=== PATIENT | female | born 1995 | race Caucasian/White ===

== ENCOUNTER 2016-10-23 09:54 | Inpatient (IN) | payer MEDICAID ==
[~2016-10-23] VITALS: Ht 165.1 cm; Wt 104.6 kg
[2016-10-23] VITALS (20 sets, daily range): BP systolic 112–144; BP diastolic 57–85
--- NOTE | 2016-10-23 13:51 | Diagnostic Imaging Report ---
OB ultrasound. INDICATION: Evaluate amniotic fluid index. There is question of fluid leakage. FINDINGS: heart rate is 175 beat per minute. The SHAW is 11.9 cm, within normal limits. Placenta is anterior. No placenta previa. The fetus is in cephalic position. IMPRESSION: SHAW is 11.9 cm, normal. Dictated by: Dictated on workstation # [id number]
[2016-10-23] MEDS ORDERED: NS IV 1000 ML 1,000 ML ONE (14:04)
[2016-10-23] MEDS ORDERED: PREN-53 PO (15:59)
[2016-10-23] MEDS ORDERED: D5 LR IV SOLUTION 1,000 ML IV SCH (16:38)
[2016-10-23] MEDS ORDERED: MINERAL OIL CONCENTRATE 99.9% 15 ML UDC TOP PRN (16:45)
[2016-10-23] MEDS ORDERED: D5 LR IV SOLUTION 1,000 ML IV ONE (16:52)
[2016-10-23 17:14] LABS: BASOPHILS % (AUTO) 0 % (0-10); EOSINOPHILS # (AUTO) 0.1 10^3/uL (0.0-0.3); EOSINOPHILS % (AUTO) 1 % (0-10); LYMPHOCYTES # (AUTO) 2.2 X 10^3 (1.0-4.0); LYMPHOCYTES % (AUTO) 16 % (12-44); MEAN CORPUSCULAR HEMOGLOBIN 24 PG (25-34); MEAN CORPUSCULAR HGB CONC 33 G/DL (32-36); MEAN CORPUSCULAR VOLUME 74 FL (80-99); MEAN PLATELET VOLUME 10.7 FL (7.4-10.4); MONOCYTES % (AUTO) 8 % (0-12); NEUTROPHILS # (AUTO) 10.3 X 10^3 (1.8-7.8); NEUTROPHILS % (AUTO) 76 % (42-75); PLATELET COUNT 342 10^3/uL (130-400); RED CELL DISTRIBUTION WIDTH 14.7 % (10.0-14.5); WHITE BLOOD COUNT 13.6 10^3/uL (4.3-11.0)
[2016-10-23] MEDS ORDERED: OXYTOCIN/NORMAL SALINE 500 ML IV ONE (18:19)
[2016-10-23] MEDS ORDERED: OXYTOCIN/NORMAL SALINE 500 ML IV SCH ×2 (18:24→23:34)
--- NOTE | 2016-10-23 21:26 | History & Physical-OB ---
OB - Chief Complaint & HPI Date Date of Admission: Date of Admission: Oct 23, 2016 at 17:16 Chief Complaint/History OB-Reason for Admission/Chief: Rupture of Membranes (at 38 weeks gestation) Hx : 3 Hx Para: 2 Expected Date of Delivery: Nov 06, 2016 Gestational Age in Weeks: 38 Gestational Age in Days: 0 History of Labs GBS negative Other Received care in [facility] Allergies and Home Medications Allergies Coded Allergies: Sulfa (Sulfonamide Antibiotics) (Unverified Allergy, Mild, HIVES, 10/23/16) sulfamethoxazole (Verified Allergy, Unknown, HIVES, 10/23/16) trimethoprim (Verified Allergy, Unknown, HIVES, 10/23/16) Home Medications [id number]/Iron Fumarate/FA/Dss 1 Each Tablet 1 EACH PO DAILY (Reported) OB - History Hx of Present Care: Yes Ultrasounds: Normal mid trimester US Obstetrical Complications: None Medical Complications: None Obstetrical History Hx : 3 Hx Para: 2 Patient Past Medical History No chronic medical problems per patient Social History/Family History Recent Infectious Disease Expo: No Alcohol Use: Denies Use Recreational Drug Use: No Immunizations Hepatitis A: Yes Hepatitis B: Yes Date of Influenza Vaccine: Sep 22, 2016 OB - Admission Exam Physical Exam Vitals: Vital Signs 10/23/16 10/23/16 18:15 19:00 Temp 98.4 Pulse 91 Resp 18 B/P 122/76 HEENT: Moist Membranes Heart: Rhythm Normal Lungs: Clear Abdomen: Gravid Cervical Dilatation: 3cm Effacement: 50% Station: -3 Membranes: Ruptured Amniotic Fluid: Clear Heart Rate: 150's Accelerations: Accelerations Present Decelerations: No Decelerations Short Term Variability: Present Housing Liaison Variability: Average (6-25) Contractions on Admission: 6-10 Minutes Apart Intensity: Mild Labs Laboratory Tests Test 10/23/16 10:00 10/23/16 14:25 Range/Units Ur Tricyclic Antidepressants Screen NEGATIVE NEGATIVE Urine Amphetamines Screen NEGATIVE NEGATIVE Urine Barbiturates Screen NEGATIVE NEGATIVE Urine Benzodiazepines Screen NEGATIVE NEGATIVE Urine Cannabinoids Screen NEGATIVE NEGATIVE Urine Cocaine Screen NEGATIVE NEGATIVE Urine Methadone Screen NEGATIVE NEGATIVE Urine Methamphetamines Screen NEGATIVE NEGATIVE Urine Opiates Screen NEGATIVE NEGATIVE Urine Oxycodone Screen NEGATIVE NEGATIVE Urine Phencyclidine Screen NEGATIVE NEGATIVE Urine Propoxyphene Screen NEGATIVE NEGATIVE Basophils # (Auto) 0.0 0.0-0.1 10^3/uL Basophils (%) (Auto) 0 0-10 % Eosinophils # (Auto) 0.1 0.0-0.3 10^3/uL Eosinophils (%) (Auto) 1 0-10 % Hematocrit 33 L 35-52 % Hemoglobin 11.0 L 11.5-16.0 G/DL Lymphocytes # (Auto) 2.2 1.0-4.0 X 10^3 Lymphocytes (%) (Auto) 16 12-44 % Mean Corpuscular Hemoglobin 24 L 25-34 PG Mean Corpuscular Hemoglobin Concent 33 32-36 G/DL Mean Corpuscular Volume 74 L 80-99 FL Mean Platelet Volume 10.7 H 7.4-10.4 FL Monocytes # (Auto) 1.0 0.0-1.0 X 10^3 Monocytes (%) (Auto) 8 0-12 % Neutrophils # (Auto) 10.3 H 1.8-7.8 X 10^3 Neutrophils (%) (Auto) 76 H 42-75 % Platelet Count 342 130-400 10^3/uL Red Blood Count 4.50 4.35-5.85 10^6/uL Red Cell Distribution Width 14.7 H 10.0-14.5 % White Blood Count 13.6 H 4.3-11.0 10^3/uL OB - Assessment/Plan/Diagnosis Assessment Assessment: active labor, rupture of membranes (at 38 weeks gestation) Plan Plan: Expectant Management, Other (pitocin per protochol) Other Plan Patient desires only IV pain meds and no epidural at this point DERIC LEMA MD Oct 23, 2016 21:26
[2016-10-23] MEDS ORDERED: BUTORPHANOL INJ 2 MG/ML (STADOL) VIAL IV PRN (21:30)
[2016-10-23] MEDS ORDERED: CATHETER FLUSH 10 ML SYR IV SCH (22:00)
[2016-10-23] MEDS ORDERED: MEPIVACAINE (CARBOCAINE) 2% 50 ML VIAL ONE (22:41)
--- NOTE | 2016-10-23 23:34 | OB Labor & Delivery Record ---
L&D History Date of Service Date of Service: Oct 23, 2016 History Expected Date of Delivery: Nov 06, 2016 Gestational Age in Weeks: 38 Hx : 3 Hx Para: 2 Complications Events: Routine care Operative Indications (Cesarea: N/A-Vaginal Delivery Intrapartal Events: None L&D Stage1 Stage One Onset of Labor - Date: Oct 23, 2016 Onset of Labor - Time: 01:00 Monitors and Tracing Monitor Mode: External Heart Rate: 150 Monitor Accelerations: Uniform Station: -2 Short Term Variability: Present Presentation: Vertex Vital Signs VS - Last 72 Hours, by Label 10/23/16 10/23/16 10/23/16 10/23/16 10:20 11:00 12:00 13:00 Temp 98.2 Pulse 107 Resp 18 18 18 18 B/P 117/85 10/23/16 10/23/16 10/23/16 10/23/16 13:50 15:00 16:00 17:00 Resp 18 18 18 18 B/P 10/23/16 10/23/16 10/23/16 10/23/16 18:00 18:15 18:30 18:45 Temp 98.4 Pulse 91 Resp 18 18 18 B/P 122/76 10/23/16 19:00 Resp 18 B/P Signs of Distress by FHT Signs of Distress no Rupture of Membranes Spontaneous Ruture of Membrane: Yes Amniotic Membrane Fluid Desc.: Clear Amniotic Fluid Membrane Tests: Nitrazine Positive L&D Stage2 Stage Two Stage II Date: Oct 23, 2016 Stage II Time: 23:13 Monitors and Tracing Monitor Mode: Internal Heart Rate: 150 Monitor Accelerations: Uniform Monitor Decelerations: None Director Cloud Transformation Variability: Average (6-10) Short Term Variability: Present Position: Left Occiput Anterior Presentation: Vertex Signs of Distress by FHT Signs of Distress no Cord Descript/Complications Cord Vessel Description: 3 Vessels Delivery Type Delivery Method: Spontaneous Vaginal Anterior Shoulder: Left Episiotomy/Perineal Laceration Laceraction(s)/Extensions: No Condition of Delivery 1 minute Comment: 8 5 minute Comment: 9 Condition of Condition of : Living Exam: No Observed Abnormalities Resuscitation Resuscitation: N/A - Spontaneous Resp L&D Stage3 Stage Three Stage III Date: Oct 23, 2016 Stage III Time: 23:16 Pictocin Pitocin ml/hr: 125 Placenta Delivery Placenta Delivery: Spontaneous Delivery Summary Summary Vaginal blood loss >500ml: No 150cc Condition of Delivery Examined: Cervix Examined Post Hemorrhage: No DERIC LEMA MD Oct 23, 2016 23:34
[2016-10-23] MEDS ORDERED: WITCH HAZEL(TUCKS) 40 EA JAR TOP PRN (23:45)
[2016-10-23] MEDS ORDERED: MEASLES,MUMPS,RUBELLA 1 EA INJ SQ ONE (23:45)
[2016-10-23] MEDS ORDERED: TETANUS,DIPTH,PERTUSS P/F (BOOSTRIX) 0.5 ML VIAL IM ONE (23:45)
[2016-10-23] MEDS ORDERED: BENZOCAINE/MENTHOL (DERMOPLAST) 56 ML CAN TP PRN (23:45)
[2016-10-23] MEDS ORDERED: HYDROcodone/APAP 5 MG/325 MG (LORTAB) TAB PO PRN (23:45)
[2016-10-24] VITALS (12 sets, daily range): BP systolic 11–134; BP diastolic 61–75
[2016-10-24] MEDS: IBUPROFEN 600 MG (MOTRIN) TAB PO SCH ×4 (05:25→23:42)
[2016-10-24] MEDS ORDERED: CATHETER FLUSH 10 ML SYR IV SCH (06:00)
[2016-10-24 08:14] LABS: BASOPHILS % (AUTO) 0 % (0-10); EOSINOPHILS # (AUTO) 0.1 10^3/uL (0.0-0.3); EOSINOPHILS % (AUTO) 1 % (0-10); LYMPHOCYTES % (AUTO) 13 % (12-44); MEAN CORPUSCULAR HEMOGLOBIN 24 PG (25-34); MEAN CORPUSCULAR HGB CONC 33 G/DL (32-36); MEAN CORPUSCULAR VOLUME 74 FL (80-99); MEAN PLATELET VOLUME 10.4 FL (7.4-10.4); MONOCYTES # (AUTO) 1.2 X 10^3 (0.0-1.0); MONOCYTES % (AUTO) 8 % (0-12); NEUTROPHILS # (AUTO) 12.1 X 10^3 (1.8-7.8); NEUTROPHILS % (AUTO) 79 % (42-75); PLATELET COUNT 309 10^3/uL (130-400); RED BLOOD COUNT 4.31 10^6/uL (4.35-5.85); RED CELL DISTRIBUTION WIDTH 14.6 % (10.0-14.5); WHITE BLOOD COUNT 15.4 10^3/uL (4.3-11.0)
--- NOTE | 2016-10-24 09:24 | Progress Note (SOAP) ---
Subjective Subjective/Events-last exam No complaints. Cramping a little but ibuprofen helped. Objective Exam Last Set of Vital Signs Vital Signs Date Time Temp Pulse Resp B/P Pulse Ox O2 Delivery O2 Flow Rate FiO2 10/24/16 04:30 98.0 86 18 114/63 98 Room Air Capillary Refill : I&O Bad tableGeneral: No Acute Distress Lungs: Clear to Auscultation Heart: Regular Rate Abdomen: Soft (with uterus firm) Results/Procedures Lab Laboratory Tests 10/23/16 10:00: Ur Tricyclic Antidepressants Screen NEGATIVE, Urine Amphetamines Screen NEGATIVE , Urine Barbiturates Screen NEGATIVE, Urine Benzodiazepines Screen NEGATIVE, Urine Cannabinoids Screen NEGATIVE, Urine Cocaine Screen NEGATIVE, Urine Methadone Screen NEGATIVE, Urine Methamphetamines Screen NEGATIVE, Urine Opiates Screen NEGATIVE, Urine Oxycodone Screen NEGATIVE, Urine Phencyclidine Screen NEGATIVE, Urine Propoxyphene Screen NEGATIVE 10/23/16 14:25: Basophils # (Auto) 0.0, Basophils (%) (Auto) 0, Eosinophils # (Auto) 0.1, Eosinophils (%) (Auto) 1, Hematocrit 33L, Hemoglobin 11.0L, Lymphocytes # (Auto ) 2.2, Lymphocytes (%) (Auto) 16, Mean Corpuscular Hemoglobin 24L, Mean Corpuscular Hemoglobin Concent 33, Mean Corpuscular Volume 74L, Mean Platelet Volume 10.7H, Monocytes # (Auto) 1.0, Monocytes (%) (Auto) 8, Neutrophils # ( Auto) 10.3H, Neutrophils (%) (Auto) 76H, Platelet Count 342, Red Blood Count 4.50, Red Cell Distribution Width 14.7H, White Blood Count 13.6H 10/24/16 07:05: Basophils # (Auto) 0.0, Basophils (%) (Auto) 0, Eosinophils # (Auto) 0.1, Eosinophils (%) (Auto) 1, Hematocrit 32L, Hemoglobin 10.4L, Lymphocytes # (Auto ) 2.0, Lymphocytes (%) (Auto) 13, Mean Corpuscular Hemoglobin 24L, Mean Corpuscular Hemoglobin Concent 33, Mean Corpuscular Volume 74L, Mean Platelet Volume 10.4, Monocytes # (Auto) 1.2H, Monocytes (%) (Auto) 8, Neutrophils # ( Auto) 12.1H, Neutrophils (%) (Auto) 79H, Platelet Count 309, Red Blood Count 4.31L, Red Cell Distribution Width 14.6H, White Blood Count 15.4H Assessment/Plan Assessment/Plan Plan 1. S/P day 1 -continue routine PP care orders -labs scheduled for am of 10/25 Diagnosis/Problems: Clinical Quality Measures DVT/VTE Risk/Contraindication: Risk Factor Score Per Nursin RFS Level Per Nursing on Admit: 2=Moderate DERIC LEMA MD Oct 24, 2016 09:24
[2016-10-24] MEDS ORDERED: ONDANSETRON 8 MG (ZOFRAN) ORAL DISSOLVE TAB ONE (23:11)
[2016-10-24] MEDS ORDERED: ONDANSETRON 4 MG (ZOFRAN) ORAL DISSOLVE TAB PO ONE (23:15)
[2016-10-24] MEDS ORDERED: ONDANSETRON 8 MG (ZOFRAN) ORAL DISSOLVE TAB PO ONE (23:30)
[2016-10-25 04:35] VITALS: BP 107/69
[2016-10-25] MEDS: IBUPROFEN 600 MG (MOTRIN) TAB PO SCH ×2 (06:28→11:06)
[2016-10-25 08:20] VITALS: BP 104/57
--- NOTE | 2016-10-25 09:42 | Discharge Inst-Women's Service ---
Discharge Inst-Women's Serv Consults/Follow Up Additional Follow Up: Yes (With your wiping cloth cutter in 6 weeks) Activity Activity: Activity as Tolerated Driving Instructions: You May Drive Nothing Inside Vagina: No [place] (for 6 weeks) Diet Discharge Diet: No Restrictions Return to The Hospital For: As below Symptoms to Report to : Bleeding Excessive, Pain Increased, Fever Over 101 Degrees F, Vaginal Discharge DERIC Colvin MD Oct 25, 2016 09:41
--- NOTE | 2016-10-25 09:46 | Discharge Summary ---
Diagnosis/Chief Complaint Date of Admission Oct 23, 2016 at 17:16 Date of Discharge October 25, 2016 Admission Diagnosis Admission Diagnosis 1. Intrauterine at term 38 weeks 2. Mild iron deficiency anemia Discharge Diagnosis 1. Intrauterine at term 38 weeks 2. Mild iron deficiency anemia Chief Complaint/HPI Chief Complaint/HPI 21-year-old 3 now term 3 female who initially presented to women's services with uterine contractions and spontaneous rupture of membranes. Patient has received her care through physician in [place] but she was here visiting her in-laws. She has a due date of November 06, 2016. By her recollection and records received from Hospital in [place] she was without complications. She had received OB ultrasound upon arrival here which revealed an SHAW of 14. She continued to leak fluid and this was positive by nitrazine. Discharge Summary-OBS Procedures 1. Spontaneous vaginal delivery Discharge Physical Examination Allergies: Coded Allergies: Sulfa (Sulfonamide Antibiotics) (Unverified Allergy, Mild, HIVES, 10/23/16) sulfamethoxazole (Verified Allergy, Unknown, HIVES, 10/23/16) trimethoprim (Verified Allergy, Unknown, HIVES, 10/23/16) Vitals & I&Os Vital Sign - Last 12Hours Date Time Temp Pulse Resp B/P Pulse Ox O2 Delivery O2 Flow Rate FiO2 10/25/16 08:20 97.4 71 18 104/57 98 Room Air General Appearance: No Acute Distress HEENT: Mucous Memb Moist/[place] Respiratory: Clear to Auscultation Cardiovascular: Regular Rate Abdominal: Soft (with uterus firm) Hospital Course Patient presented to women's services on October 23, 2016 with spontaneous rupture of membranes and 38 weeks gestation. She initially was underwent expectant management but ultimately Pitocin was started. She eventually went on to completion and delivered a term viable female during the evening of October 23, 2016. Delivery was spontaneous vaginal and there was no episiotomy or perineal tears. received Apgars of 9 at 1 minute and 9 at 5 minutes. Following delivery patient underwent routine care orders. She was noted to have no complications during the remainder of hospital stay. She tolerated regular diet. She was ambulatory and had no shortness of breath or leg pain. Her hemoglobin on October 24 after delivery was 10.4. She was felt ready for dismissal in the morning of October 25, 2016 with all questions answered. She will follow up with her general forecaster in [facility] in 6 weeks. Discharge Instructions to patient/family Please see electonic discharge instructions given to patient. Discharge Medications Reviewed and agree with Discharge Medication list on patient's Discharge Instruction sheet Clinical Quality Measures DVT/VTE Risk/Contraindication: Risk Factor Score Per Nursin RFS Level Per Nursing on Admit: 2=Moderate DERIC LEMA MD Oct 25, 2016 09:46
== END 2016-10-25 12:30 | disposition home or self-care (01) | DRG 775 ==
LOC: WSo 09:54 → LDRP 09:54 → WSo 16:28 → LDRP 17:16
PROVIDERS: ADMIT Family Medicine; ATTEND Family Medicine
PROC: 10E0XZZ Delivery of Products of Conception, External Approach (ICD-10-PCS; principal; 2016-10-23)
DX: O42.02 Full-term premature rupture of membranes, onset of labor within 24 hours of rupture (principal); O99.013 Anemia complicating pregnancy, third trimester; D50.9 Iron deficiency anemia, unspecified; Z3A.38 38 weeks gestation of pregnancy; Z37.0 Single live birth
CPT/HCPCS: 36415; 76815; 80306; 85025; 86850; 86900; 86901; 99212

== ENCOUNTER → 2017-08-05 | Outpatient (CLI) | payer MEDICAID ==
[~2017-08-05] MED LIST: PREN-53 PO
--- NOTE | 2017-08-05 19:55 | Diagnostic Imaging Report ---
INDICATION: survey. TECHNIQUE: Multiple real-time grayscale images were obtained over the gravid uterus. COMPARISON: None during this . FINDINGS: heart rate is 158 beats per minute. The placenta is fundal. No placenta previa. The cervix is closed and is 4.1 cm in length. The spine, ventricles, bladder, kidneys, stomach, four-chamber view, intracranial structures, spine, cord insertion, and three-vessel cord are demonstrated. No definite abnormality in the maternal adnexa is seen. Biometrical measurements are as follows: Biparietal 4.93 cm, age 21 weeks 0 days. Head circumference 18.02 cm, age 20 weeks 4 days. Abdominal circumference 16.17 cm, age 21 weeks 2 days. Femur length 3.44 cm, age 20 weeks 6 days. Sonographic estimate age: 21 weeks 0 days. Sonographic estimated date of delivery: 12/16/2017. Estimated Weight: 392 gm (+/- 57 gm). LMP percentile: 69%. heart rate: 158 beats per minute. number: 1 of 1. IMPRESSION: Completed survey. Dictated by: Dictated on workstation # [id number]
== END ==
LOC: RAD 13:43
PROVIDERS: ATTEND Obstetrics & Gynecology
DX: Z36.87 Encounter for antenatal screening for uncertain dates (principal); Z3A.21 21 weeks gestation of pregnancy
CPT/HCPCS: 76805

== ENCOUNTER 2017-12-12 08:05 | Inpatient (IN) | payer MEDICAID ==
[~2017-12-12] VITALS: Ht 170.2 cm; Wt 105.2 kg
[2017-12-12] VITALS (35 sets, daily range): BP systolic 108–135; BP diastolic 56–79
[2017-12-12] MEDS ORDERED: D5 LR IV SOLUTION 1,000 ML IV SCH (09:03)
--- NOTE | 2017-12-12 09:09 | History & Physical-OB ---
OB - Chief Complaint & HPI Date/Time Date of Admission: Date of Admission: 12/12/17 Time Seen by Provider: 08:30 Chief Complaint/History OB-Reason for Admission/Chief: Rupture of Membranes (rupture of membranes, clear fluid at 0600) Hx : 4 Hx Para: 3 Expected Date of Delivery: Dec 18, 2017 Gestational Age in Weeks: 39 Gestational Age in Days: 1 Other reason for admission: This is a at 39 1/7 weeks. She had established care with Dr. Song but was only seen twice and hasn't been seen since 27 weeks[facility]. Admission Nurse Assessment Rev: Yes (O+, -) History of Labs O+/-, VDRL NR, HIV, Hep -, Rub I GBS unknown Other GBS unknown with no history of previous with poor outcome associated with GBS. Allergies and Home Medications Allergies Coded Allergies: Sulfa (Sulfonamide Antibiotics) (Unverified Allergy, Mild, HIVES, 10/23/16) sulfamethoxazole (Verified Allergy, Unknown, HIVES, 10/23/16) trimethoprim (Verified Allergy, Unknown, HIVES, 10/23/16) Home Medications Ibuprofen 600 Mg Tablet, 600 MG PO Q6HR PRN for PAIN-MILD Prescribed by: KORY PENNINGTON on 12/14/17 1006 [id number]/Iron Fumarate/FA/Dss 1 Each Tablet, 1 EACH PO DAILY, (Reported) Patient Home Medication List Home Medication List Reviewed: Yes OB - History Hx of Present Care: Yes (very limited (2 visits)) Ultrasounds: Normal mid trimester US Obstetrical Complications: None Medical Complications: None Information Induced Hypertension: No Maternal Gestational Diabetes: No Hemorrhage: No Obstetrical History Hx : 4 Hx Para: 3 Hx # Term Pregnancies: 3 Delivery History Hx Dystocia: No Hx Forceps Assisted Delivery: No Hx Vacuum Extraction Assisted: No Hx Placenta Abnormality: No Hx Distress: No Hx Large For Gestational Age I: No Hx Small for Gestational Age I: No Hx Section: No Hx Vaginal Delivery Post C-Sec: No Hx Blood Disorders: No Adverse Rxn to Tranfusion: No Patient Past Medical History No chronic medical problems per patient Social History/Family History HIV/AIDS: No Recent Infectious Disease Expo: No Sexually Transmitted Disease: No Alcohol Use: Denies Use Recreational Drug Use: No Smoking Cessation: Former smoker Immunizations Hepatitis A: Yes Hepatitis B: Yes Tetanus Booster (TDap): Unknown Date of Influenza Vaccine: Sep 22, 2016 Rubella: immune RPR/VDRL: Negative GBS Status: Unknown HBsAG: Negative OB - Admission Exam Physical Exam Vitals: see RN chart Heart: Rhythm Normal Lungs: Clear Abdomen: Gravid Reflexes: Normal Cervical Dilatation: other (There is scarring or irregularity noted on the periphery of the cervix. Firm. No previous history of abnormal pap smear, no history of cervical biopsy or surgery. Pap 07/20 negative RN concerned about presentation but vertex by US. ) Effacement: 50% Station: -3 Membranes: Ruptured Amniotic Fluid: Clear Heart Rate: 140's Accelerations: Accelerations Present Decelerations: No Decelerations Short Term Variability: Present Fpc Variability: Average (6-25) Contractions on Admission: >10 Minutes Apart OB - Assessment/Plan/Diagnosis Assessment Assessment: rupture of membranes Admission Dx Limited care ROM Admit for observation. Augmentation as necessary. Anticipate . USD pending Admission Status: Inpatient Order (span 2 midnights) Reason for Inpatient Admission: LABOR, SPONTANEOUS RUPTURE OF MEMBRANES KORY PENNINGTON DO Dec 12, 2017 9:09 am
[2017-12-12] MEDS ORDERED: MINERAL OIL CONCENTRATE 99.9% 15 ML UDC TOP PRN (09:15)
[2017-12-12] MEDS ORDERED: LIDOCAINE/EPI 1%-1:100,000 (XYLOCAINE) 20ML INJ ONE (09:15)
[2017-12-12] MEDS ORDERED: OXYTOCIN/NORMAL SALINE 500 ML IV SCH (09:39)
[2017-12-12 09:49] LABS: BILIRUBIN,URINE NEGATIVE (NEGATIVE); CLARITY,URINE VERY CLOUDY; COLOR,URINE YELLOW; GLUCOSE, URINE (UA) NEGATIVE (NEGATIVE); KETONES,URINE NEGATIVE (NEGATIVE); LEUKOCYTE ESTERASE ,URINE NEGATIVE (NEGATIVE); NITRITE,URINE NEGATIVE (NEGATIVE); PH,URINE 7 (5-9); PROTEIN,URINE NEGATIVE (NEGATIVE); UROBILINOGEN,URINE NORMAL (NORMAL)
[2017-12-12 09:59] LABS: BACTERIA,URINE NEGATIVE /HPF; RBC,URINE 25-50 /HPF; SQUAMOUS EPITHELIAL CELL,UR TNTC /HPF
[2017-12-12 10:00] LABS: AMORPHOUS SEDIMENT,UR LARGE AMOR URATES /LPF
[2017-12-12 10:01] LABS: AMPHETAMINE SCREEN, URINE NEGATIVE (NEGATIVE); BARBITURATE SCREEN URINE NEGATIVE (NEGATIVE); BENZODIAZEPINES SCREEN URINE NEGATIVE (NEGATIVE); CANNABINOID SCREEN, URINE NEGATIVE (NEGATIVE); COCAINE SCREEN URINE NEGATIVE (NEGATIVE); METHADONE STAT NEGATIVE (NEGATIVE); METHAMPHETAMINE SCREEN URINE S NEGATIVE (NEGATIVE); OPIATE SCREEN URINE NEGATIVE (NEGATIVE); OXYCODONE STAT NEGATIVE (NEGATIVE); PROPOXYPHENE STAT NEGATIVE (NEGATIVE); TRICYCLIC ANTIDEPRESSANTS SCRE NEGATIVE (NEGATIVE)
[2017-12-12 10:27] LABS: BASOPHILS % (AUTO) 0 % (0-10); EOSINOPHILS # (AUTO) 0.2 10^3/uL (0.0-0.3); EOSINOPHILS % (AUTO) 2 % (0-10); HEMATOCRIT 32 % (35-52); HEMOGLOBIN 10.5 G/DL (11.5-16.0); LYMPHOCYTES # (AUTO) 1.8 X 10^3 (1.0-4.0); LYMPHOCYTES % (AUTO) 18 % (12-44); MEAN CORPUSCULAR HEMOGLOBIN 23 PG (25-34); MEAN CORPUSCULAR HGB CONC 33 G/DL (32-36); MEAN CORPUSCULAR VOLUME 71 FL (80-99); MEAN PLATELET VOLUME 10.3 FL (7.4-10.4); MONOCYTES # (AUTO) 0.9 X 10^3 (0.0-1.0); MONOCYTES % (AUTO) 8 % (0-12); NEUTROPHILS # (AUTO) 7.4 X 10^3 (1.8-7.8); NEUTROPHILS % (AUTO) 72 % (42-75); PLATELET COUNT 261 10^3/uL (130-400); RED BLOOD COUNT 4.55 10^6/uL (4.35-5.85); RED CELL DISTRIBUTION WIDTH 15.5 % (10.0-14.5); WHITE BLOOD COUNT 10.3 10^3/uL (4.3-11.0)
[2017-12-12] MEDS ORDERED: ONDANSETRON 4 MG/2 ML (SDV) Z0FRAN IVP PRN (11:45)
[2017-12-12] MEDS ORDERED: INFLUENZA TRIvalent 2017-2018 0.5 ML/45 MCG SYR IM ONE (12:00)
[2017-12-12] MEDS: BUTORPHANOL INJ 2 MG/ML (STADOL) VIAL IV PRN ×2 (12:54→15:08)
[2017-12-12] MEDS ORDERED: LIDOCAINE/EPI 2% 1:200,00 (XYLOCAINE) 10 ML VIAL ONE (15:12)
[2017-12-12] MEDS: OXYTOCIN/NORMAL SALINE 500 ML IV SCH ×2 (17:19→17:44)
[2017-12-12] MEDS ORDERED: BENZOCAINE/MENTHOL (DERMOPLAST) 56 ML CAN TP PRN (17:30)
[2017-12-12] MEDS ORDERED: MEASLES,MUMPS,RUBELLA 1 EA INJ SQ ONE (17:30)
[2017-12-12] MEDS ORDERED: ACETAMINOPHEN 500 MG TAB (TYLENOL) PO PRN (17:30)
[2017-12-12] MEDS ORDERED: WITCH HAZEL(TUCKS) 40 EA JAR TOP PRN (17:30)
[2017-12-12] MEDS ORDERED: TETANUS,DIPTH,PERTUSS P/F (BOOSTRIX) 0.5 ML VIAL IM ONE (17:30)
--- NOTE | 2017-12-12 17:40 | OB Labor & Delivery Record ---
Vag Delivery Note Vag Delivery Note Date of Delivery: 12/12/17 Preoperative Diagnosis: Clare Mercado is a 22 /Para 4/3 / ,Gestational Age 39 1/7 weeks with SROM Postoperative Diagnosis: Same Surgeon: KORY PENNINGTON Anesthesia: epidural Delivery Type: vaginal Findings: Viable female infant, apgars 8/9, weight pending Lacerations: Intact placenta with 3 vessel cord. No nuchal cord, body cord or shoulder dystocia Estimated Blood Loss: 150 ml Complications: None Condition: Stable Description of Procedure: The patient is a 22 /Para 4/3 / ,Gestational Age 39 1/7 weeks with SROM. She was admitted and informed consent was obtained. Her labor course was remarkable for augmentation after 4 hours with no cervical change and rare contractions. Epidural was placed. I was notified at 1704 of 9 cm dilation and "feeling pushy". I immediately came to the hospital I arrived at 1713. I was notified while in the staircase that she was and arrived on the floor as the head was delivered in the bed. The RN stated the patient did not push. I delivered the rest of the baby. Double cut the cord and suctioned the oropharynx. I then accomplished delivery of an intact placenta with 3-vessel cord delivered via Smith and there was found to be minimal bleeding.~ Vigorous fundal massage was performed and the fundus was found to be firm. IV oxytocin was given. Examination of the vagina and perineum revealed a no laceration. Following the delivery, sponge, instrument and needle counts were correct. Mom and baby were both in stable condition in the labor suite. Vitals - Labs Vital Signs - I&O Vital Signs Date Time Temp Pulse Resp B/P (MAP) Pulse Ox O2 Delivery O2 Flow Rate FiO2 12/12/17 14:00 76 20 115/60 (78) Room Air 12/12/17 13:45 83 20 116/66 (83) Room Air 12/12/17 13:31 72 20 119/68 (85) Room Air 12/12/17 13:15 75 20 114/66 (82) Room Air 12/12/17 13:02 81 20 118/69 (85) Room Air 12/12/17 12:46 79 20 112/72 (85) Room Air 12/12/17 12:32 98.7 82 20 118/63 (81) Room Air 12/12/17 12:15 92 20 108/71 (83) Room Air 12/12/17 12:00 86 20 113/74 (87) Room Air 12/12/17 11:45 82 20 117/75 (89) Room Air 12/12/17 11:32 76 20 108/70 (83) Room Air 12/12/17 11:15 75 20 113/70 (84) Room Air 12/12/17 11:00 98.3 73 20 113/67 (82) Room Air 12/12/17 10:45 78 20 114/78 (90) Room Air 12/12/17 10:32 75 20 113/71 (85) Room Air 12/12/17 08:25 80 20 130/79 (96) Room Air Labs Laboratory Tests 12/12/17 08:30: Urine Color YELLOW, Urine Clarity VERY CLOUDYH, Urine pH 7, Urine Specific [place] 1.020, Urine Protein NEGATIVE, Urine Glucose (UA) NEGATIVE, Urine Ketones NEGATIVE, Urine Nitrite NEGATIVE, Urine Bilirubin NEGATIVE, Urine Urobilinogen NORMAL, Urine Leukocyte Esterase NEGATIVE, Urine RBC (Auto) 4+H, Urine RBC 25-50H, Urine WBC NONE, Urine Squamous Epithelial Cells TNTCH, Urine Crystals PRESENTH, Urine Amorphous Sediment LARGE JOSE L URATESH, Urine Bacteria NEGATIVE, Urine Casts NONE, Urine Mucus NEGATIVE, Urine Culture Indicated NO, Urine Opiates Screen NEGATIVE, Urine Oxycodone Screen NEGATIVE, Urine Methadone Screen NEGATIVE, Urine Propoxyphene Screen NEGATIVE, Urine Barbiturates Screen NEGATIVE, Ur Tricyclic Antidepressants Screen NEGATIVE, Urine Phencyclidine Screen NEGATIVE, Urine Amphetamines Screen NEGATIVE, Urine Methamphetamines Screen NEGATIVE, Urine Benzodiazepines Screen NEGATIVE, Urine Cocaine Screen NEGATIVE, Urine Cannabinoids Screen NEGATIVE 12/12/17 10:09: White Blood Count 10.3, Red Blood Count 4.55, Hemoglobin 10.5L, Hematocrit 32L, Mean Corpuscular Volume 71L, Mean Corpuscular Hemoglobin 23L, Mean Corpuscular Hemoglobin Concent 33, Red Cell Distribution Width 15.5H, Platelet Count 261, Mean Platelet Volume 10.3, Neutrophils (%) (Auto) 72, Lymphocytes (%) (Auto) 18 , Monocytes (%) (Auto) 8, Eosinophils (%) (Auto) 2, Basophils (%) (Auto) 0, Neutrophils # (Auto) 7.4, Lymphocytes # (Auto) 1.8, Monocytes # (Auto) 0.9, Eosinophils # (Auto) 0.2, Basophils # (Auto) 0.0 KORY PENNINGTON DO Dec 12, 2017 5:40 pm
[2017-12-12] MEDS: IBUPROFEN 600 MG (MOTRIN) TAB PO PRN (21:01)
[2017-12-12] MEDS ORDERED: CATHETER FLUSH 10 ML SYR IV SCH (22:00)
[2017-12-13 00:30] VITALS: BP 83/44
[2017-12-13 03:53] VITALS: BP 114/74
[2017-12-13 06:49] LABS: BASOPHILS % (AUTO) 0 % (0-10); EOSINOPHILS # (AUTO) 0.2 10^3/uL (0.0-0.3); EOSINOPHILS % (AUTO) 1 % (0-10); HEMATOCRIT 30 % (35-52); HEMOGLOBIN 9.3 G/DL (11.5-16.0); LYMPHOCYTES # (AUTO) 2.5 X 10^3 (1.0-4.0); LYMPHOCYTES % (AUTO) 20 % (12-44); MEAN CORPUSCULAR HEMOGLOBIN 23 PG (25-34); MEAN CORPUSCULAR HGB CONC 32 G/DL (32-36); MEAN CORPUSCULAR VOLUME 71 FL (80-99); MEAN PLATELET VOLUME 10.5 FL (7.4-10.4); MONOCYTES # (AUTO) 0.9 X 10^3 (0.0-1.0); MONOCYTES % (AUTO) 8 % (0-12); NEUTROPHILS # (AUTO) 8.7 X 10^3 (1.8-7.8); NEUTROPHILS % (AUTO) 71 % (42-75); PLATELET COUNT 272 10^3/uL (130-400); RED BLOOD COUNT 4.13 10^6/uL (4.35-5.85); RED CELL DISTRIBUTION WIDTH 15.3 % (10.0-14.5); WHITE BLOOD COUNT 12.2 10^3/uL (4.3-11.0)
[2017-12-13] MEDS ORDERED: TETANUS,DIPTH,PERTUSS P/F (BOOSTRIX) 0.5 ML VIAL IM ONE (08:25)
[2017-12-13] MEDS: IBUPROFEN 600 MG (MOTRIN) TAB PO PRN ×3 (08:41→21:49)
[2017-12-13 08:44] VITALS: BP 99/64
--- OUTSIDE RECORDS SUMMARY | 2017-12-13 08:56 | XMS REPORT ---
Author Author [facility]ICHOL[facility] Address [address] [place] [address] Care Team Providers Care High Heel Builder Name Role Phone MITCHELL NICHOLS Unavailable PROBLEMS Type Condition ICD9-CM Code [id number] Code Onset Dates Condition Status SNOMED Code Problem Anxiety F41.9 Active 05643028 Problem Major depressive disorder, recurrent episode, moderate F33.1 Active [id number] ALLERGIES No Information SOCIAL HISTORY Never Assessed PLAN OF CARE VITAL SIGNS MEDICATIONS Unknown Medications RESULTS No Results PROCEDURES No Known procedures IMMUNIZATIONS No Known Immunizations MEDICAL (GENERAL) HISTORY Type Description Date Medical History Depression Medical History Anxiety Surgical History tonsillectomy and adenoidectomy 1999 Hospitalization History childbirth only
--- OUTSIDE RECORDS SUMMARY | 2017-12-13 08:57 | XMS REPORT ---
Author Author JOSH MCGOVERN [facility] Address [address] [place] [address] Care Team Providers Care Pickle Solution Maker Name Role Phone JOSH MCGOVERN Unavailable PROBLEMS Type Condition ICD9-CM Code [id number] Code Onset Dates Condition Status SNOMED Code Problem Anxiety F41.9 Active 89090043 Problem Major depressive disorder, recurrent episode, moderate F33.1 Active [id number] ALLERGIES No Information SOCIAL HISTORY Never Assessed PLAN OF CARE VITAL SIGNS MEDICATIONS Unknown Medications RESULTS No Results PROCEDURES No Known procedures IMMUNIZATIONS No Known Immunizations MEDICAL (GENERAL) HISTORY Type Description Date Medical History Depression Medical History Anxiety Surgical History tonsillectomy and adenoidectomy 1999 Hospitalization History childbirth only
--- OUTSIDE RECORDS SUMMARY | 2017-12-13 08:57 | XMS REPORT ---
Author Author ANJELICA JOSUE Organization [facility] Address [address] [place] [address] Care Team Providers Care Credit And Collections Analyst Name Role Phone ANJELICA JOSUE Unavailable PROBLEMS Type Condition ICD9-CM Code [id number] Code Onset Dates Condition Status SNOMED Code Problem Anxiety F41.9 Active 12431794 Problem Major depressive disorder, recurrent episode, moderate F33.1 Active [id number] ALLERGIES Substance Reaction Event Type Date Status Sulfacetamide Sodium hives Drug Allergy Nov, Active SOCIAL HISTORY Never Assessed PLAN OF CARE VITAL SIGNS MEDICATIONS Unknown Medications RESULTS No Results PROCEDURES No Known procedures IMMUNIZATIONS No Known Immunizations MEDICAL (GENERAL) HISTORY Type Description Date Medical History Depression Medical History Anxiety Surgical History tonsillectomy and adenoidectomy 1999 Hospitalization History childbirth only
--- OUTSIDE RECORDS SUMMARY | 2017-12-13 08:57 | XMS REPORT ---
Author Author DARRYN BHAKTA [facility] Address Unknown Phone Unavailable Care Team Providers Care Cancer Researcher Name Role Phone DARRYN BHAKTA Unavailable Unavailable PROBLEMS Type Condition ICD9-CM Code [id number] Code Onset Dates Condition Status SNOMED Code Problem Anxiety F41.9 Active 33027569 Problem Major depressive disorder, recurrent episode, moderate F33.1 Active [id number] ALLERGIES No Information SOCIAL HISTORY Never Assessed PLAN OF CARE VITAL SIGNS MEDICATIONS Unknown Medications RESULTS No Results PROCEDURES No Known procedures IMMUNIZATIONS No Known Immunizations MEDICAL (GENERAL) HISTORY Type Description Date Medical History Depression Medical History Anxiety Surgical History tonsillectomy and adenoidectomy 1999 Hospitalization History childbirth only
--- OUTSIDE RECORDS SUMMARY | 2017-12-13 08:57 | XMS REPORT ---
Author Author MITCHELL NICHOLS [facility] Address [address] [place] [address] Care Team Providers Care Food Critic Name Role Phone MITCHELL NICHOLS Unavailable PROBLEMS Type Condition ICD9-CM Code [id number] Code Onset Dates Condition Status SNOMED Code Problem Anxiety F41.9 Active 63287036 Problem Major depressive disorder, recurrent episode, moderate F33.1 Active 062088151 ALLERGIES Substance Reaction Event Type Date Status Sulfacetamide Sodium hives Drug Allergy Dec, Active SOCIAL HISTORY Never Assessed PLAN OF CARE Activity Details Follow Up 3 Weeks Reason:anxiety/depression/WW exam VITAL SIGNS Height 67 in 2016-12-21 Weight 214.0 lbs 2016-12-21 Temperature 96.9 degrees Fahrenheit 2016-12-21 Heart Rate 86 bpm 2016-12-21 Respiratory Rate 18 2016-12-21 BMI 33.51 kg/m2 2016-12-21 Blood pressure systolic 118 mmHg 2016-12-21 Blood pressure diastolic 76 mmHg 2016-12-21 MEDICATIONS Medication Instructions Dosage Frequency Start Date End Date Duration Status Zoloft 50 mg Orally Once a day ( take 1/2 tablet x 3 days then 1 tablet daily ) 1 tablet Dec, Active RESULTS Name Result Date Reference Range THYROID ANALYZER 2016-12-21 TSH 0.828 0.450-4.500 CMP 2016-12-21 Glucose, Serum 110 65-99 BUN 12 6-20 Creatinine, Serum 0.97 0.57-1.00 eGFR If NonAfricn Am 83 >59 eGFR If Africn Am 95 >59 BUN/Creatinine Ratio 12 8-20 Sodium, Serum 142 134-144 Potassium, Serum 4.1 3.5-5.2 Chloride, Serum 101 96-106 Carbon Dioxide, Total 23 18-29 Calcium, Serum 9.7 8.7-10.2 Protein, Total, Serum 7.4 6.0-8.5 Albumin, Serum 4.5 3.5-5.5 Globulin, Total 2.9 1.5-4.5 A/G Ratio 1.6 1.2-2.2 Bilirubin, Total 0.3 0.0-1.2 Alkaline Phosphatase, S 98 39-117 AST (SGOT) 20 0-40 ALT (SGPT) 34 0-32 CBC 2016-12-21 WBC 8.1 3.4-10.8 RBC 5.12 3.77-5.28 Hemoglobin 12.2 11.1-15.9 Hematocrit 37.5 34.0-46.6 MCV 73 79-97 MCH 23.8 26.6-33.0 MCHC 32.5 31.5-35.7 RDW 20.6 12.3-15.4 Platelets 447 150-379 Neutrophils 61 Lymphs 29 Monocytes 6 Eos 3 Basos 0 Neutrophils (Absolute) 5.0 1.4-7.0 Lymphs (Absolute) 2.4 0.7-3.1 Monocytes(Absolute) 0.5 0.1-0.9 Eos (Absolute) 0.2 0.0-0.4 Baso (Absolute) 0.0 0.0-0.2 Immature Granulocytes 1 Immature Grans (Abs) 0.0 0.0-0.1 PROCEDURES Procedure Date Ordered Result Body Site ROUTINE VENIPUNCTURE 2016-12-21 N/A COMPLETE CBC W/AUTO DIFF WBC December 21, 2016 ASSAY THYROID STIM HORMONE December 21, 2016 COMPREHEN METABOLIC PANEL December 21, 2016 IMMUNIZATIONS No Known Immunizations MEDICAL (GENERAL) HISTORY Type Description Date Medical History Depression Medical History Anxiety Surgical History tonsillectomy and adenoidectomy 1999 Hospitalization History childbirth only
--- OUTSIDE RECORDS SUMMARY | 2017-12-13 08:57 | XMS REPORT ---
Author Author JOSH MCGOVERN Organization [facility] Address [address] [place] [address] Care Team Providers Care Fitness Trainer Name Role Phone JOSH MCGOVERN Unavailable PROBLEMS Type Condition ICD9-CM Code [id number] Code Onset Dates Condition Status SNOMED Code Problem Anxiety F41.9 Active 81198685 Problem Major depressive disorder, recurrent episode, moderate F33.1 Active [id number] ALLERGIES No Information SOCIAL HISTORY Never Assessed PLAN OF CARE Activity Details Follow Up prn Reason: VITAL SIGNS MEDICATIONS Unknown Medications RESULTS No Results PROCEDURES Procedure Date Ordered Result Body Site Psychotherapy, patient &/family, 30 minutes, established patient Nov 23, 2016 IMMUNIZATIONS No Known Immunizations MEDICAL (GENERAL) HISTORY Type Description Date Medical History Depression Medical History Anxiety Surgical History tonsillectomy and adenoidectomy 1999 Hospitalization History childbirth only
--- OUTSIDE RECORDS SUMMARY | 2017-12-13 08:57 | XMS REPORT ---
Author [facility] Address [address] [place] [address] Care Team Providers Care Proc Tech Name Role Phone MITCHELL NICHOLS Unavailable PROBLEMS Type Condition ICD9-CM Code [id number] Code Onset Dates Condition Status SNOMED Code Problem Anxiety F41.9 Active 67106361 Problem Major depressive disorder, recurrent episode, moderate F33.1 Active [id number] ALLERGIES No Information SOCIAL HISTORY Never Assessed PLAN OF CARE VITAL SIGNS MEDICATIONS Unknown Medications RESULTS No Results PROCEDURES No Known procedures IMMUNIZATIONS No Known Immunizations MEDICAL (GENERAL) HISTORY Type Description Date Medical History Depression Medical History Anxiety Surgical History tonsillectomy and adenoidectomy 1999 Hospitalization History childbirth only
--- OUTSIDE RECORDS SUMMARY | 2017-12-13 08:57 | XMS REPORT ---
Author Author JOSH MCGOVERN [facility] [address] Address [address] [place] [address] Care Team Providers Care Bumper Straightener Name Role Phone JOSH MCGOVERN Unavailable PROBLEMS Type Condition ICD9-CM Code [id number] Code Onset Dates Condition Status SNOMED Code Problem Anxiety F41.9 Active 41321589 Problem Major depressive disorder, recurrent episode, moderate F33.1 Active [id number] ALLERGIES No Information SOCIAL HISTORY Never Assessed PLAN OF CARE VITAL SIGNS MEDICATIONS Unknown Medications RESULTS No Results PROCEDURES No Known procedures IMMUNIZATIONS No Known Immunizations MEDICAL (GENERAL) HISTORY Type Description Date Medical History Depression Medical History Anxiety Surgical History tonsillectomy and adenoidectomy 1999 Hospitalization History childbirth only
--- NOTE | 2017-12-13 10:55 | Postpartum Progress Note ---
Note Note Day # 1 s/p Subjective: Patient is without complaints. Ambulating, voiding. Tolerating a regular diet without nausea or vomiting. Normal lochia. Pain is well controlled with oral pain medications. Objective: Laboratory Tests Test 12/13/17 06:19 Range/Units White Blood Count 12.2 H 4.3-11.0 10^3/uL Red Blood Count 4.13 L 4.35-5.85 10^6/uL Hemoglobin 9.3 L 11.5-16.0 G/DL Hematocrit 30 L 35-52 % Mean Corpuscular Volume 71 L 80-99 FL Mean Corpuscular Hemoglobin 23 L 25-34 PG Mean Corpuscular Hemoglobin Concent 32 32-36 G/DL Red Cell Distribution Width 15.3 H 10.0-14.5 % Platelet Count 272 130-400 10^3/uL Mean Platelet Volume 10.5 H 7.4-10.4 FL Neutrophils (%) (Auto) 71 42-75 % Lymphocytes (%) (Auto) 20 12-44 % Monocytes (%) (Auto) 8 0-12 % Eosinophils (%) (Auto) 1 0-10 % Basophils (%) (Auto) 0 0-10 % Neutrophils # (Auto) 8.7 H 1.8-7.8 X 10^3 Lymphocytes # (Auto) 2.5 1.0-4.0 X 10^3 Monocytes # (Auto) 0.9 0.0-1.0 X 10^3 Eosinophils # (Auto) 0.2 0.0-0.3 10^3/uL Basophils # (Auto) 0.0 0.0-0.1 10^3/uL Laboratory Tests Test 12/12/17 08:30 12/12/17 10:09 12/13/17 06:19 Range/Units Urine Color YELLOW Urine Clarity VERY CLOUDY H Urine pH 7 5-9 Urine Specific [place] 1.020 1.016-1.022 Urine Protein NEGATIVE NEGATIVE Urine Glucose (UA) NEGATIVE NEGATIVE Urine Ketones NEGATIVE NEGATIVE Urine Nitrite NEGATIVE NEGATIVE Urine Bilirubin NEGATIVE NEGATIVE Urine Urobilinogen NORMAL NORMAL MG/DL Urine Leukocyte Esterase NEGATIVE NEGATIVE Urine RBC (Auto) 4+ H NEGATIVE Urine RBC 25-50 H /HPF Urine WBC NONE /HPF Urine Squamous Epithelial Cells TNTC H /HPF Urine Crystals PRESENT H /LPF Urine Amorphous Sediment LARGE JOSE L URATES H /LPF Urine Bacteria NEGATIVE /HPF Urine Casts NONE /LPF Urine Mucus NEGATIVE /LPF Urine Culture Indicated NO Urine Opiates Screen NEGATIVE NEGATIVE Urine Oxycodone Screen NEGATIVE NEGATIVE Urine Methadone Screen NEGATIVE NEGATIVE Urine Propoxyphene Screen NEGATIVE NEGATIVE Urine Barbiturates Screen NEGATIVE NEGATIVE Ur Tricyclic Antidepressants Screen NEGATIVE NEGATIVE Urine Phencyclidine Screen NEGATIVE NEGATIVE Urine Amphetamines Screen NEGATIVE NEGATIVE Urine Methamphetamines Screen NEGATIVE NEGATIVE Urine Benzodiazepines Screen NEGATIVE NEGATIVE Urine Cocaine Screen NEGATIVE NEGATIVE Urine Cannabinoids Screen NEGATIVE NEGATIVE White Blood Count 10.3 12.2 H 4.3-11.0 10^3/uL Red Blood Count 4.55 4.13 L 4.35-5.85 10^6/uL Hemoglobin 10.5 L 9.3 L 11.5-16.0 G/DL Hematocrit 32 L 30 L 35-52 % Mean Corpuscular Volume 71 L 71 L 80-99 FL Mean Corpuscular Hemoglobin 23 L 23 L 25-34 PG Mean Corpuscular Hemoglobin Concent 33 32 32-36 G/DL Red Cell Distribution Width 15.5 H 15.3 H 10.0-14.5 % Platelet Count 261 272 130-400 10^3/uL Mean Platelet Volume 10.3 10.5 H 7.4-10.4 FL Neutrophils (%) (Auto) 72 71 42-75 % Lymphocytes (%) (Auto) 18 20 12-44 % Monocytes (%) (Auto) 8 8 0-12 % Eosinophils (%) (Auto) 2 1 0-10 % Basophils (%) (Auto) 0 0 0-10 % Neutrophils # (Auto) 7.4 8.7 H 1.8-7.8 X 10^3 Lymphocytes # (Auto) 1.8 2.5 1.0-4.0 X 10^3 Monocytes # (Auto) 0.9 0.9 0.0-1.0 X 10^3 Eosinophils # (Auto) 0.2 0.2 0.0-0.3 10^3/uL Basophils # (Auto) 0.0 0.0 0.0-0.1 10^3/uL Vital Sign - Last 12Hours 12/13/17 12/13/17 12/13/17 00:30 03:53 08:44 Temp 99.3 98.2 99.1 Pulse 69 81 75 Resp 18 16 18 B/P (MAP) 83/44 (57) 114/74 (87) 99/64 (76) Pulse Ox 98 99 97 O2 Delivery Room Air Room Air Room Air Intake and Output 12/13/17 00:00 Intake Total 1700 ml Balance 1700 ml Physical Exam: General - Alert and oriented, no apparent distress Abdomen - Soft, appropriately tender to palpation, non-distended, fundus firm at umbilicus Extremities - no edema, negative Jen's bilaterally Assessment: 1. post- day # 1, status post SPONTvaginal delivery. Recovering well, hemodynamically stable 2. Acute blood loss anemia 3. cervical lesion removed Plan: Routine care. Encourage breast feeding. Encourage ambulation. Ferrous sulfate supplementation. Plan for discharge Vitals - Labs Vital Signs - I&O Vital Signs Date Time Temp Pulse Resp B/P (MAP) Pulse Ox O2 Delivery O2 Flow Rate FiO2 12/13/17 08:44 99.1 75 18 99/64 (76) 97 Room Air 12/13/17 03:53 98.2 81 16 114/74 (87) 99 Room Air 12/13/17 00:30 99.3 69 18 83/44 (57) 98 Room Air 12/12/17 20:25 91 20 135/72 (93) 97 Room Air 12/12/17 18:29 77 20 112/61 (78) Room Air 12/12/17 18:14 98.4 74 20 112/58 (76) Room Air 12/12/17 17:59 81 20 116/57 (76) Room Air 12/12/17 17:44 81 20 109/59 (76) Room Air 12/12/17 17:29 86 20 115/56 (75) Room Air 12/12/17 17:15 96 20 127/61 (83) Room Air 12/12/17 17:00 85 20 117/63 (81) Room Air 12/12/17 16:45 85 20 123/66 (85) Room Air 12/12/17 16:30 88 20 125/75 (92) Room Air 12/12/17 16:15 98.3 85 20 118/66 (83) Room Air 12/12/17 16:00 82 20 120/71 (87) Room Air 12/12/17 15:45 83 20 121/71 (88) Room Air 12/12/17 15:31 72 20 119/65 (83) Room Air 12/12/17 15:15 78 20 114/61 (78) Room Air 12/12/17 15:00 85 20 118/73 (88) Room Air 12/12/17 14:45 85 20 115/60 (78) Room Air 12/12/17 14:30 98.3 82 20 128/68 (88) Room Air 12/12/17 14:15 82 20 126/65 (85) Room Air 12/12/17 14:00 76 20 115/60 (78) Room Air 12/12/17 13:45 83 20 116/66 (83) Room Air 12/12/17 13:31 72 20 119/68 (85) Room Air 12/12/17 13:15 75 20 114/66 (82) Room Air 12/12/17 13:02 81 20 118/69 (85) Room Air 12/12/17 12:46 79 20 112/72 (85) Room Air 12/12/17 12:32 98.7 82 20 118/63 (81) Room Air 12/12/17 12:15 92 20 108/71 (83) Room Air 12/12/17 12:00 86 20 113/74 (87) Room Air 12/12/17 11:45 82 20 117/75 (89) Room Air 12/12/17 11:32 76 20 108/70 (83) Room Air 12/12/17 11:15 75 20 113/70 (84) Room Air 12/12/17 11:00 98.3 73 20 113/67 (82) Room Air I & O 12/13/17 07:00 Intake Total 1700 ml Balance 1700 ml Labs Laboratory Tests 12/13/17 06:19: White Blood Count 12.2H, Red Blood Count 4.13L, Hemoglobin 9.3L, Hematocrit 30L , Mean Corpuscular Volume 71L, Mean Corpuscular Hemoglobin 23L, Mean Corpuscular Hemoglobin Concent 32, Red Cell Distribution Width 15.3H, Platelet Count 272, Mean Platelet Volume 10.5H, Neutrophils (%) (Auto) 71, Lymphocytes (% ) (Auto) 20, Monocytes (%) (Auto) 8, Eosinophils (%) (Auto) 1, Basophils (%) ( Auto) 0, Neutrophils # (Auto) 8.7H, Lymphocytes # (Auto) 2.5, Monocytes # (Auto ) 0.9, Eosinophils # (Auto) 0.2, Basophils # (Auto) 0.0 Microbiology 12/12/17 Urine Culture - Preliminary, Resulted KORY PENNINGTON DO Dec 13, 2017 10:55 am
[2017-12-13 12:50] VITALS: BP 104/67
[2017-12-13 18:03] VITALS: BP 113/70
[2017-12-13 21:49] VITALS: BP 107/58
[2017-12-14 04:03] VITALS: BP 115/70
[2017-12-14] MEDS: IBUPROFEN 600 MG (MOTRIN) TAB PO PRN ×2 (04:04→10:35)
[2017-12-14] MEDS ORDERED: IBUP-1773 PO (10:06)
--- NOTE | 2017-12-14 10:10 | Discharge Inst-Women's Service ---
Discharge Inst-Women's Serv Depart Medication/Instructions New, Converted or Re-Newed RX: RX on Chart Final Diagnosis labor, rupture of membranes vaginal delivery epidural Consults/Follow Up Additional Follow Up: Yes ([address] Pennington) Activity Activity: Activity as Tolerated Driving Instructions: You May Drive NO SMOKING: NO SMOKING Nothing Inside Vagina: No Douching, No Crump, No Tampons Diet Discharge Diet: No Restrictions Symptoms to Report to : Bleeding Excessive, Pain Increased, Fever Over 101 Degrees F, Vaginal Bleeding Increase, Cramps in Feet or Legs, Vaginal Discharge Foul For Any Problems or Questions: Contact Your Physician KORY PENNINGTON DO Dec 14, 2017 10:09
--- NOTE | 2017-12-14 10:12 | Progress Note-Standard ---
Standard Progress Note Progress Notes/Assess & Plan Date Seen by Provider: Dec 14, 2017 Time Seen by Provider: 10:00 Progress/Assessment & Plan pp day #2 doing well. DC held yesterday due to feeding issues. DC today. KORY PENNINGTON DO Dec 14, 2017 10:12
[2017-12-14 10:36] VITALS: BP 113/66
--- NOTE | 2018-01-11 09:38 | Physician Query-General Query ---
Physician Query-General Query to Physician: Please do an addendum to your delivery note to include the cervical lesion removal thank you PHYSICIAN RESPONSE: Based on the clinical findings in the record, please respond to the query above on this document as an addendum. Possible, probable, or questionable diagnosis can be coded for INPATIENTS ONLY. Physician Response: If you have questions please contact: [id number]/M60 Tank Driver: Vikki Rome Ext: [phone] Thank you for your time and cooperation. Clinical Utilization Review Coordinator/M48/M60 Tank Driver This is a permanent part of the medical record BRENNA ROME Jan 11, 2018 09:37
== END 2017-12-14 13:40 | disposition home or self-care (01) | DRG 767 ==
LOC: WSo 08:05 → LDRP 08:05 → WSo 09:08 → LDRP 09:08
PROVIDERS: ADMIT Obstetrics & Gynecology; ATTEND Obstetrics & Gynecology
PROC: 10E0XZZ Delivery of Products of Conception, External Approach (ICD-10-PCS; principal; 2017-12-12)
PROC: 0UDB7ZX Extraction of Endometrium, Via Natural or Artificial Opening, Diagnostic (ICD-10-PCS; 2017-12-12)
DX: O99.013 Anemia complicating pregnancy, third trimester (principal); D64.9 Anemia, unspecified; O99.89 Other specified diseases and conditions complicating pregnancy, childbirth and the puerperium; D06.9 Carcinoma in situ of cervix, unspecified; O09.33 Supervision of pregnancy with insufficient antenatal care, third trimester; Z3A.39 39 weeks gestation of pregnancy; Z37.0 Single live birth; Z23 Encounter for immunization
CPT/HCPCS: 36415; 80306; 81000; 85025; 86850; 86900; 86901; 87088; 88305; 88341; 88342; 90715; 99212

== ENCOUNTER 2018-02-07 05:37 | Outpatient (CLI) | payer MEDICAID ==
[~2018-02-07] VITALS: Ht 170.2 cm; Wt 99.8 kg
[~2018-02-07 05:37] MED LIST changes: +IBUP-1773 PO
[2018-02-07] MEDS ORDERED: FERR160T5 PO (11:04)
[2018-02-07] MEDS ORDERED: [UNRECOGNIZED DRUG - OTHER] PO (11:04)
[2018-02-11] MEDS ORDERED: METR500T21 PO (13:43)
[2018-02-11] MEDS ORDERED: IBUP-844 PO (13:43)
[2018-02-11] MEDS ORDERED: FAMO20TA5 PO (13:43)
[2018-02-11] MEDS ORDERED: HYDR-3820 PO (13:43)
[2018-02-11] MEDS ORDERED: BO30SU PR (13:43)
[2018-02-11] MEDS ORDERED: FERR160T5 PO (13:48)
[2018-02-18] MEDS ORDERED: PHEN-639 PO (21:48)
[2018-02-18] MEDS ORDERED: HYOS0.3732 PO (21:48)
[2018-02-18] MEDS ORDERED: NITR-65 PO (21:48)
== END 2018-02-07 11:10 ==
LOC: PREOP 05:37
PROVIDERS: ATTEND Obstetrics & Gynecology
DX: Z01.818 Encounter for other preprocedural examination (principal); N88.9 Noninflammatory disorder of cervix uteri, unspecified; R87.613 High grade squamous intraepithelial lesion on cytologic smear of cervix (HGSIL)

== ENCOUNTER 2018-02-08 06:10 | Inpatient (IN) | payer MEDICAID ==
[~2018-02-08] VITALS: Ht 170.2 cm; Wt 99.8 kg
[2018-02-08] VITALS (16 sets, daily range): BP systolic 111–128; BP diastolic 62–82
[~2018-02-08 06:10] MED LIST changes: +FERR160T5 PO; +[UNRECOGNIZED DRUG - OTHER] PO
[2018-02-08] MEDS ORDERED: SEVOFLURANE (ULTANE) 15 ML INHAL SOLN ONE ×20 (06:43→12:14)
[2018-02-08] MEDS ORDERED: ONDANSETRON 4 MG/2 ML (SDV) Z0FRAN ONE (06:43)
[2018-02-08] MEDS ORDERED: DEXAMETHASONE 10 MG/ML (DECADRON) 1 ML VIAL ONE (06:43)
[2018-02-08] MEDS ORDERED: LIDOCAINE PF 2% 5 ML (XYLOCAINE) VIAL ONE (06:43)
[2018-02-08] MEDS ORDERED: proPOfol 200 MG/20 ML (DIPRIVAN) VIAL IV ONE ×2 (06:43→07:51)
[2018-02-08] MEDS ORDERED: fentaNYL INJECTION 100 MCG/2 ML AMP ONE ×3 (06:44→12:03)
[2018-02-08] MEDS ORDERED: MIDAZOLAM 2 MG/2 ML (VERSED) VIAL ONE (06:44)
[2018-02-08] MEDS ORDERED: FAMOTIDINE 20MG/2ML IV (PEPCID) IV ONE (06:45)
[2018-02-08] MEDS ORDERED: NS (IVPB) 100 ML ONE ×2 (06:53→08:32)
[2018-02-08] MEDS ORDERED: ceFAZolin 1,000 MG (ANCEF) VIAL ONE ×3 (06:53→11:45)
[2018-02-08] MEDS ORDERED: BUPIVACAINE 0.25% 30 ML (SENSORCAINE) VIAL ONE (07:14)
[2018-02-08] MEDS: LACTATED RINGERS 1,000 ML IV PRN ×7 (07:38→10:47)
[2018-02-08] MEDS ORDERED: metroNIDAZOLE 500MG/100ML IVPB 100 ML ONE (07:42)
[2018-02-08] MEDS ORDERED: ceFAZolin 1 GM/NS 100 ML IVPB IV ONE ×2 (07:45)
[2018-02-08] MEDS ORDERED: ceFAZolin INJECTION 1,000 MG in NS (IVPB) 100 ML IV ONE (07:45)
[2018-02-08] MEDS ORDERED: metroNIDAZOLE 500MG/100ML IVPB 100 ML IV ONE (07:45)
[2018-02-08] MEDS ORDERED: CATHETER FLUSH 10 ML SYR IV PRN (07:45)
--- NOTE | 2018-02-08 07:45 | Progress Note-Pre Operative ---
Pre-Operative Progress Note H&P Reviewed The H&P was reviewed, patient examined and no changes noted. Date Seen by Provider: February 08, 2018 Time Seen by Provider: 07:35 Date H&P Reviewed: February 08, 2018 Time H&P Reviewed: 07:15 Pre-Operative Diagnosis: KATE III, cervical lesion, bacterioal vaginosis KORY PENNINGTON DO February 08, 2018 07:45
[2018-02-08] MEDS ORDERED: ALBUMIN 25% 25 GM/100 ML 100 ML IV ONE ×2 (08:30→10:01)
[2018-02-08] MEDS ORDERED: VASOPRESSIN INJECTION 20 UNIT/ML VIAL ONE (08:32)
[2018-02-08] MEDS ORDERED: ESTROGENS CONJ. CREAM 30 GM (PREMARIN) TUBE ONE (08:37)
[2018-02-08] MEDS ORDERED: GLYCOPYRROLATE 0.2 MG/ML (ROBINUL) 2 ML VIAL ONE (08:41)
[2018-02-08] MEDS ORDERED: NEOSTIGMINE 1 MG/ML 5 ML SYRINGE ONE (08:41)
[2018-02-08 08:53] LABS: HEMOGLOBIN 11.4 G/DL (11.5-16.0)
[2018-02-08] MEDS ORDERED: PHENYLEPHRINE 100 MCG/ML 10 ML (ANESTHESIA) SYR ONE (09:21)
[2018-02-08] MEDS ORDERED: ROCURONIUM 10 MG/ML 5 ML SYRINGE IV ONE ×2 (09:42→11:32)
[2018-02-08] MEDS ORDERED: CALCIUM GLUC. 10% 4.65 MEQ/10 ML VIAL ONE (10:44)
--- NOTE | 2018-02-08 11:48 | Progress Note-Post Operative ---
Post-Operative Progess Note Surgeon (s)/Switchboard Operator Receptionist (s) Surgeon DO RAMESH MD Switchboard Operator Receptionist: GORGE Pre-Operative Diagnosis BLADDER LACERATION Post-Operative Diagnosis SAME Procedure & Operative Findings Date of Procedure 02/08/18 Procedure Performed/Findings OPEN CYSTOSTOMY AND REPAIR BLADDER LACERATION Anesthesia Type GENERAL Estimated Blood Loss Estimated blood loss (mL): LESS THAN 100CC Specimens/Packing Specimens Removed N/A Packing: N/A DO RAMESH MD February 08, 2018 11:48
[2018-02-08 12:14] LABS: BASOPHILS % (AUTO) 0 % (0-10); EOSINOPHILS # (AUTO) 0.1 10^3/uL (0.0-0.3); EOSINOPHILS % (AUTO) 0 % (0-10); HEMATOCRIT 31 % (35-52); HEMOGLOBIN 10.5 G/DL (11.5-16.0); LYMPHOCYTES # (AUTO) 1.4 X 10^3 (1.0-4.0); LYMPHOCYTES % (AUTO) 8 % (12-44); MEAN CORPUSCULAR HEMOGLOBIN 27 PG (25-34); MEAN CORPUSCULAR HGB CONC 33 G/DL (32-36); MEAN CORPUSCULAR VOLUME 81 FL (80-99); MEAN PLATELET VOLUME 9.1 FL (7.4-10.4); MONOCYTES # (AUTO) 0.5 X 10^3 (0.0-1.0); MONOCYTES % (AUTO) 3 % (0-12); NEUTROPHILS # (AUTO) 16.2 X 10^3 (1.8-7.8); NEUTROPHILS % (AUTO) 89 % (42-75); PLATELET COUNT 222 10^3/uL (130-400); RED CELL DISTRIBUTION WIDTH 19.3 % (10.0-14.5); WHITE BLOOD COUNT 18.2 10^3/uL (4.3-11.0)
[2018-02-08] MEDS ORDERED: NS IV 1000 ML 1,000 ML IV SCH (12:42)
[2018-02-08 12:45] LABS: ANISOCYTOSIS SLIGHT; LYMPHOCYTES % (MANUAL) 8 %; MONOCYTES % (MANUAL) 2 %; NEUTROPHILS % (MANUAL) 90 %; POIKILOCYTOSIS SLIGHT
[2018-02-08] MEDS ORDERED: METOCLOPRAMIDE INJ 10 MG/2 ML (REGLAN) IV PRN (12:45)
[2018-02-08] MEDS ORDERED: NALOXONE 0.4 MG/ML 1 ML (NARCAN) VIAL IV PRN (12:45)
[2018-02-08] MEDS ORDERED: diphenhydrAMINE 50 MG/ML INJ (BENADRYL) IV PRN (12:45)
[2018-02-08] MEDS ORDERED: ONDANSETRON 4 MG/2 ML (SDV) Z0FRAN IV PRN ×2 (12:45→16:15)
[2018-02-08 12:46] LABS: BURR CELLS SLIGHT; CRENATED RBC MODERATE; MICROCYTOSIS SLIGHT
--- NOTE | 2018-02-08 12:53 | Operative Report ---
Operative Report Date of Procedure/Surgery February 08, 2018 Surgeon (s) KORY PENNINGTON DO Storekeeper Helper (s): SHANTI Carter Post-Operative Diagnosis Cervical mass Procedure Performed Cervical conization, converted to TVH due to excessive uncontrollable bleeding, converted to open ysterectomy due to adhesions, left adnexal mass and cystotomy, open repair of cystotomy, placement of suprapubic catheter, repair of rectal laceration Description of Procedure Anesthesia Type: General Estimated blood loss (mL): 3500 Specimen(s) collected/removed uterus, cervical conization/ECC, right tube, left tube and ovary Packing: N/A Description of the Procedure This is a 22 year old female. She is . She had limited care with Dr. Song and had a pap smear in 07/05/17. This was negative. She presented in labor on 12/12/17 while I was telecommunications professional. At the time of her evaluation, the RN noted "something felt funny" and was concerned about malpresentation. Exam determined her to have cephalic presentation, but nodular scarring on the anterior cervix (several small 1-2 mm nodules noted). One of these was biopsied after her delivery. Pathology was KATE III, with possible area of invasive squamous carcinoma. She had already been scheduled for her post exam. However, once I received the notification from pathology of the severe dysplasia/CIS and possible cervical cancer, we attempted to reach her by phone and by mail to come in earlier to discuss the pathology and schedule follow up. Phone was disconnected and letter returned. She did call prior to her scheduled appointment, however, to find out times, and was informed that I wanted to discuss her pathology at that appointment and to keep the appointment. She was seen last week for her scheduled 6 week post visit. I requested to do a LEEP procedure with colposcopy at her visit. She, however, declined the LEEP as she had her and toddler with her and her SO was not available. She did consent to colposcopy. At the time of the colposcopy, I could visualize a 2 cm lesion on the posterior cervix that appeared exophytic. It was not ulcerated, not bleeding, she did have discharge that was cultured. Culture positive for Gardnerella (this returned the day prior to surgery, so treated preoperatively and will be continued postoperatively). Together, we opted to proceed with cervical conization within the week. Consent has been obtained and patient taken to the operating room where LMA/ general anesthesia was found to be adequate. She was then prepped and draped in the usual sterile fashion in the dorsolithotomy position. the bladder was drained of clear yellow urine. A speculum was placed in the vagina. The lesion was again noted on the cervix. I measured this and 2.5 cm width, 1 cm depth from cervix. I placed a tenaculum and then placed a cervical block with 0.5% Marcaine. I then placed stay sutures at 3 and 9 o'clock of 2-0 Monocryl. I then started the cold knife conization. I did an Endocervical curette and when I did this, noted that the mass extended into the endocervical canal and was very friable. The was a depth of approximately 1 cm so I made my cervical conization deep enough to account for this. The mass extended beyond the lower cervical edge and the far left portion and I made sure to excise this completely as well. Once I got to the base, I cut this was scissors and sent for pathology, however, she began having hemorrhaging from a deep cervical vessel. There was arterial bleeding that could not be cauterized. I could not control the bleeding with suture. Due to excessive, rapid blood loss, the knowledge that she desired tubal sterilization and has completed childbearing ( had signed her title XIX) and the knowledge that a hysterectomy would eventually be necessary, I opted to proceed with hysterectomy to control the bleeding. She was not prepped for abdominal surgery, had an LMA and had 2+ prolapse and a 3+ rectocele, so a vaginal approach was determined to be the best course of hysterectomy. I placed a urethral catheter and the a weighted speculum. I grasped the cervix with a sharp toothed tenaculum. I then injected the cervicovaginal junction with dilute vasopressin, and made a circumferential incision with the Bovie. I then attempted to enter the anterior culdesac. I could not initially do this, so pushed back the vaginal epithelium and started the hysterectomy extrafascially. I grasped the uterosacral ligaments with the Z clamps, cut and suture ligated with 2-0 vicryl. I then entered the posterior culdesac with the Falk scissors and placed a Tk speculum. I then grasped the uterine arteries bilaterally with the Z clamps, cut and suture ligated with the 2-0 vicryl bilaterally. I then noted that as I pushed the vaginal epithelium off the posterior vagina, there appeared to be a small rectal laceration. This was left for repair later. I then noted a mass in the left pelvis, apparently left adnexal. There was adhesions of the ovary to the left posterior uterus. I could not easily enter the anterior culdesac and then made an incidental laceration into the bladder. This was noted immediately and was about 1 cm. I placed a stitch wit the intent to return to repair this. However, with continued bleeding, I made the decision to proceed with the hysterectomy abdominally. The uterus and vagina was packed and the patient was repositioned and the abdomen was prepped and redraped. We regowned and regloved. I then made a midline skin incision with the scalpel below the umbilicus to the suprapubic region. I carried this to the underlying of fascia with the scalpel and incised in the midline. I then the muscles and then entered the peritoneum with Metzenbaum scissors and extended this incision superiorly and inferiorly. I then packed the bowel away and placed an extra large Rubin retractor. I thenk noted the left adnexal mass. It was 4-6 cm and appeared simple but the tube was scarred to the surface of this cyst and it was scarred to the left ovarian fossa and the left pelvic wall. These adhesions were taken down bluntly. I then grasped the round ligaments bilaterally sutured and then ligated the round ligaments bilaterally. I then clamped the left infundibular pelvic ligament. It was noted to be very dilated and was also scarred. I transected and suture ligated with 2-0 Vicryl. I now did a right salpingectomy. There was scarring of the right ovary to the ovarian fossa, but the ovary was not enlarged and appeared within normal limits. I then incised the mesosalpinx with the Bovie and then clamped at the uterus and ligated the tube and sent this separately from the left tube and ovary to pathology. I now grasped the right uterine ovarian ligament with a Dajuan clamp, transected and suture ligated with 2-0 Vicryl. I then incised the vesicouterine peritoneum with Metzenbaum scissors and pushed the back off the lower uterine segments. It was very friable. I then the anterior and posterior leaves of the broad ligament. I then grasped the uterine arteries bilaterally, transected and suture ligated. I then removed the remained of the uterus (the uterus was mildly enlarged with a tiny posterior subserosal fibroid, but otherwise appeared normal, no evidence of disease). This was sent for pathology. There was some difficulty closing the cuff because of the previous attempt a the vaginal hysterectomy. I closed the peritoneum and cuff with 0 vicryl, securing the apices bilaterally with 0 Vicryl and then closing with interrupted sutures. I then asked Dr. ruvalcaba to come perform repair of the cystotomy and placement of the suprapubic catheter ( dictated under separate cover). At this point the pelvis was copiously irrigated. There was hemostasis. I then removed the bowel packing and then did a full survey and determined good hemostasis. Ureters were effluxing bilaterally. I then did a modified Smead-Sorensen mass closure. I Used double looped 0 PDS suture, reapproximating the muscles and then closing the peritoneum and fascia. reapproximated the subcutaneous layer with interrupted 0 Plain and then closed the skin with sangeeta. The suprapubic catheter through the lower portion of the incision. I then repositioned and redraped the patient. I closed the rectal laceration (this was less than 1 cm and about 4 cm from the anal verge and closed with 3-0 vicryl in interrupted fashion. I then closed the fascia over the top and reinforced the layer under the bladder before closing the vaginal cuff. I reinforced the apices with interrupted stitches of 0-Vicryl and then closed the vaginal cuff with running 0-Vicryl. The vagina was now irrigated. I did a rectal exam and the rectal laceration was closed and supported. she does have several external hemorrhoids and an anal fissure at 12 O'clock. This was present prior to the surgery. A bandage was placed. The instrument and sponge count was not completed prior to the conversion from vaginal to laparotomy so the patient was repositioned and an xray was done. There was also a raytec sponge that could not be accounted for. The abdominal xrays were negative. There is a suprapubic catheter and a urethral catheter in place. The patient was awakened and taken to the recovery room in stable condition. Needle count was correct times two and the xray was negative. Findings of the Procedure 2.5 x 1.5 cm cervical mass on posterior cervical os, extension to anterior cervical os, endocervical extension about 1.5, cm Once cervical conization was done, I could not control the bleeding and could see active bleeding within the uterus, I packed the uterus and the attempted the Total vaginal hysterectomy. There was not extension outside the cervix onto the vaginal mucosa. During the vaginal hysterectomy, I entered the bladder when I attempted to enter the anterior vaginal fornix and then also entered the rectum with entry of the posterior culdesac (there was a very large rectocele). As entered the pelvis, I noted adhesinos and a large left adnexal mass so opted to proceed with open Hysterectomy. Allergies and Home Medications Allergies Coded Allergies: Sulfa (Sulfonamide Antibiotics) (Unverified Allergy, Mild, HIVES, 10/23/16) sulfamethoxazole (Verified Allergy, Unknown, HIVES, 10/23/16) trimethoprim (Verified Allergy, Unknown, HIVES, 10/23/16) Home Medications Ferrous Sulfate, Dried 160 Mg Tablet.er, 160 MG PO DAILY, (Reported) [Control Weight Supp] , 1 TAB PO DAILY, (Reported) Patient Home Medication List Home Medication List Reviewed: Yes KORY PENNINGTON DO February 08, 2018 12:53
[2018-02-08] MEDS ORDERED: INDIGO CARMINE 8 MG/ML 5 ML AMP ONE (12:59)
[2018-02-08] MEDS ORDERED: HYDROmorphone 2 MG/ML VIAL (DILAUDID) ONE (13:03)
[2018-02-08] MEDS: HYDROmorphone 2 MG/ML VIAL (DILAUDID) IVP PRN ×3 (13:05→13:27)
--- NOTE | 2018-02-08 13:05 | Diagnostic Imaging Report ---
INDICATION: Postop pelvis. COMPARISON: None FINDINGS: Supine radiographic views of the abdomen and pelvis were obtained. Surgical skin sangeeta are noted midline. There is some soft tissue emphysema. No unexpected radiopaque foreign bodies are identified. Small bowel loops are nondistended. IMPRESSION: 1. No unexpected radiopaque foreign bodies in this postsurgical patient. Dictated by: Dictated on workstation # [id number]
[2018-02-08] MEDS ORDERED: MEPERIDINE (DEMEROL) INJ 50 MG/ML IVP PRN (13:15)
[2018-02-08] MEDS ORDERED: fentaNYL INJECTION 100 MCG/2 ML AMP IVP PRN (13:15)
[2018-02-08] MEDS ORDERED: PROMETHAZINE INJ 25 MG/ML (PHENERGAN) AMP IVP PRN (13:15)
[2018-02-08] MEDS ORDERED: ONDANSETRON 4 MG/2 ML (SDV) Z0FRAN IVP PRN (13:15)
[2018-02-08] MEDS: KETOROLAC 30 MG/ML VIAL IVP SCH ×2 (13:24→19:00)
[2018-02-08] MEDS ORDERED: D5 LR IV SOLUTION 1,000 ML IV SCH (16:01)
[2018-02-08] MEDS ORDERED: HYDROcodone/APAP 5 MG/325 MG (LORTAB) TAB PO PRN (16:15)
[2018-02-08] MEDS ORDERED: KETOROLAC 30 MG/ML VIAL IV SCH (16:15)
[2018-02-08] MEDS ORDERED: ESTRADIOL 0.1 MG PATCH (CLIMARA) TD ONE (16:15)
[2018-02-08] MEDS ORDERED: morphine INJ 10 MG/ML 1ML (SYR OR VIAL) IV PRN (16:15)
[2018-02-08] MEDS: D5 LR IV SOLUTION 1,000 ML IV SCH ×2 (16:24→22:13)
[2018-02-08] MEDS ORDERED: CHLORASEPTIC SPRAY 177 ML LIQUID MC PRN (17:00)
[2018-02-08] MEDS ORDERED: CHLORASEPTIC LOZENGE MM PRN (17:00)
[2018-02-08] MEDS: morphine PCA 30 MG/30 ML VIAL IV PRN (17:11)
[2018-02-08 17:23] LABS: HEMOGLOBIN 10.9 G/DL (11.5-16.0); MEAN PLATELET VOLUME 8.7 FL (7.4-10.4); RED BLOOD COUNT 4.03 10^6/uL (4.35-5.85); RED CELL DISTRIBUTION WIDTH 18.5 % (10.0-14.5); WHITE BLOOD COUNT 17.1 10^3/uL (4.3-11.0)
[2018-02-08] MEDS: ONDANSETRON 4 MG/2 ML (SDV) Z0FRAN IVP PRN (21:00)
[2018-02-08] MEDS: metroNIDAZOLE 500MG/100ML IVPB 100 ML IV SCH (21:02)
[2018-02-08] MEDS: ceFAZolin INJECTION 1,000 MG in NS (IVPB) 100 ML IV SCH (22:13)
--- NOTE | 2018-02-08 22:50 | OPERATIVE REPORT ---
DATE OF SERVICE: 02/08/2018 PREOPERATIVE DIAGNOSIS: On my part, bladder laceration. POSTOPERATIVE DIAGNOSIS: On my part, bladder laceration. OPERATION PERFORMED: Open cystostomy and repair of bladder laceration. SURGEON: Govind Ramesh MD. GRAIN MANAGER: Sandrine Lomas DO. ANESTHESIA: General. COMPLICATIONS: None. DESCRIPTION OF PROCEDURE: I was called in the operating room by Dr. Lomas because of a laceration in the posterior wall of the bladder during a vaginal hysterectomy, which was converted to abdominal case. I went and the abdomen was opened. I dissected the bladder anteriorly. The vaginal wall was intact. There was a hole somewhere posteriorly which was very hard to see abdominally. Also, I wanted to check the integrity of the ureter, so I went ahead and did an open cystostomy in the anterior wall of the bladder, examined the bladder carefully. There was a good sized hole in the posterior wall locally between the ureteric orifices just above the trigone. There was excellent effluxes coming from both ureters. These were kept in view during the whole procedure including the repair and to confirm the integrity of the ureter at all time. I went ahead and closed the hole with interrupted 3-0 chromic catgut and then closed the cystostomy in two layers. The mucosa with a running 3-0 chromic and the seromuscular layer was interrupted 2-0 chromic in a watertight way. I inserted a suprapubic tube coming through the anterior wall of the bladder on the left side of the cystostomy. I inflated the balloon to 10 mL, inflated the bladder with fluid through the urethral catheter. The closure of the bladder was watertight with no leakage. Estimated blood loss for my part less than 100 mL, none of which was replaced. Needle, sponge, instrument counts correct x2. Dr. Lomas then proceeded to continue repair of the vaginal laceration and reinforcement of the bladder laceration posteriorly through the vagina, which she will dictate along with her other dictation. Again, the ureteric orifices were seen spurting urine nicely at the end of the repair and before closure of the bladder anteriorly. Job ID: [id number] DocumentID: [id number] Dictated Date: 02/08/2018 11:52:47 [place]oma Operator Date: 02/08/2018 22:49:34 Dictated By: GOVIND RAMESH MD
[2018-02-09] VITALS (17 sets, daily range): BP systolic 91–126; BP diastolic 46–74
[2018-02-09] MEDS: KETOROLAC 30 MG/ML VIAL IVP SCH ×4 (01:38→18:41)
[2018-02-09] MEDS: ONDANSETRON 4 MG/2 ML (SDV) Z0FRAN IVP PRN (01:41)
[2018-02-09 03:00] LABS: BASOPHILS % (AUTO) 0 % (0-10); EOSINOPHILS % (AUTO) 0 % (0-10); HEMATOCRIT 28 % (35-52); HEMOGLOBIN 9.9 G/DL (11.5-16.0); LYMPHOCYTES # (AUTO) 1.8 X 10^3 (1.0-4.0); LYMPHOCYTES % (AUTO) 12 % (12-44); MEAN CORPUSCULAR HEMOGLOBIN 27 PG (25-34); MEAN CORPUSCULAR HGB CONC 36 G/DL (32-36); MEAN CORPUSCULAR VOLUME 76 FL (80-99); MEAN PLATELET VOLUME 9.3 FL (7.4-10.4); MONOCYTES # (AUTO) 1.2 X 10^3 (0.0-1.0); MONOCYTES % (AUTO) 7 % (0-12); NEUTROPHILS # (AUTO) 12.9 X 10^3 (1.8-7.8); NEUTROPHILS % (AUTO) 81 % (42-75); PLATELET COUNT 286 10^3/uL (130-400); RED BLOOD COUNT 3.65 10^6/uL (4.35-5.85); RED CELL DISTRIBUTION WIDTH 18.6 % (10.0-14.5); WHITE BLOOD COUNT 15.9 10^3/uL (4.3-11.0)
[2018-02-09 03:15] LABS: BUN/CREATININE RATIO 9; CALCIUM 8.1 MG/DL (8.5-10.1); CARBON DIOXIDE 25 MMOL/L (21-32); CHLORIDE 106 MMOL/L (98-107); CREATININE SERUM 0.66 MG/DL (0.60-1.30); GFR ESTIMATED > 60; GLUCOSE 146 MG/DL (70-105); MAGNESIUM 1.4 MG/DL (1.8-2.4); POTASSIUM 3.1 MMOL/L (3.6-5.0); SODIUM 141 MMOL/L (135-145)
[2018-02-09] MEDS ORDERED: RT-ALBUTEROL SULF 2.5 MG/3 ML PRE-MIX VIAL ONE (03:16)
[2018-02-09] MEDS: D5 LR IV SOLUTION 1,000 ML IV SCH ×3 (04:45→18:48)
[2018-02-09] MEDS ORDERED: CALCIUM GLUC. 10% 4.65 MEQ/10 ML VIAL ONE (05:14)
[2018-02-09] MEDS ORDERED: CALCIUM GLUCONATE 10% INJ 4.65 MEQ in NS (IVPB) 100 ML IV ONE ×3 (05:15→05:45)
[2018-02-09] MEDS ORDERED: NS ONE (05:16)
[2018-02-09] MEDS ORDERED: ALBUMIN 25% 25 GM/100 ML 100 ML IV ONE ×2 (05:45→06:15)
[2018-02-09] MEDS ORDERED: POTASSIUM CL 10MEQ/50ML IVPB 50 ML IV SCH (06:00)
[2018-02-09] MEDS ORDERED: MAGNESIUM 1 GM/100 ML IVPB 100 ML IV SCH (06:00)
[2018-02-09] MEDS ORDERED: KCL 20 MEQ TAB (K-DUR) PO SCH (06:00)
[2018-02-09] MEDS: ceFAZolin INJECTION 1,000 MG in NS (IVPB) 100 ML IV SCH (06:12)
[2018-02-09] MEDS ORDERED: IBUPROFEN 600 MG (MOTRIN) TAB PO SCH (08:00)
--- NOTE | 2018-02-09 08:12 | Anesthesia-General Post-Op ---
General Patient Condition Mental Status/LOC: Same as Preop Cardiovascular: Satisfactory Nausea/Vomiting: Absent Respiratory: Satisfactory Pain: Controlled Complications: Absent Post Op Complications Complications None Follow Up Care/Instructions Patient Instructions None needed. Anesthesia/Patient Condition Patient Condition Patient is doing well, no complaints, stable vital signs, no apparent adverse anesthesia problems. No complications reported per nursing. NANCY LUEVANO CRNA February 09, 2018 08:12
[2018-02-09] MEDS: DOCUSATE SODIUM 100 MG (COLACE) CAP PO SCH ×2 (08:34→21:34)
[2018-02-09] MEDS: ENOXAPARIN 40 MG/0.4 ML (LOVENOX) SYR SC SCH (08:34)
[2018-02-09] MEDS: POTASSIUM CL 10MEQ/50ML IVPB 50 ML IV SCH ×4 (08:34→11:46)
[2018-02-09] MEDS: BISACODYL 5 MG (DULCOLAX) TABLET PO SCH (08:34)
[2018-02-09] MEDS: MAGNESIUM 1 GM/100 ML IVPB 100 ML IV SCH ×2 (08:34→10:30)
[2018-02-09] MEDS: RT-ALBUTEROL SULF 2.5 MG/3 ML PRE-MIX VIAL INH PRN ×3 (08:35→22:57)
[2018-02-09] MEDS: metroNIDAZOLE 500MG/100ML IVPB 100 ML IV SCH ×2 (08:35→21:34)
--- NOTE | 2018-02-09 08:47 | Diagnostic Imaging Report ---
EXAMINATION: Portable erect AP chest obtained at 236. INDICATION: Dyspnea There are no prior studies available for comparison. The heart size is within normal limits. The lungs are generally clear although the right lung base is not well visualized due to the elevated right hemidiaphragm. The lung apices are also partially obscured by the patient's chin. The mediastinum is not widened. The osseous structures are intact. IMPRESSION: 1. There is no evidence for acute cardiopulmonary abnormality. 2. If clinical concern regarding an acute abnormality persists, then a followup PA and lateral chest would be recommended for further study. Dictated by: Dictated on workstation # [id number]
[2018-02-09] MEDS ORDERED: SENNA W/DOCUSATE (SENOKOT S) TABLET PO SCH (09:00)
[2018-02-09] MEDS ORDERED: DOCUSATE SODIUM 100 MG (COLACE) CAP PO SCH (09:00)
--- NOTE | 2018-02-09 11:02 | Progress Note (SOAP) ---
Subjective Date Seen by Provider: February 09, 2018 Time Seen by Provider: 10:30 Subjective/Events-last exam Found sitting up in bed. She has not passed gas. She complains of incisional pain. Has tolerated a few clear liquids. Has a headache and would like some tylenol. Lesion on right upper lip had enlarged (injury at time of intubation) . Complains of some "Gas" but not passing flatus. Pain is ok. urine is adequate but is sanches colored from the suprapubic and urethral catheter. Laboratory Tests Test 02/08/18 12:00 02/08/18 17:13 02/09/18 02:48 Range/Units White Blood Count 18.2 H 17.1 H 15.9 H 4.3-11.0 10^3/uL Red Blood Count 3.90 L 4.03 L 3.65 L 4.35-5.85 10^6/uL Hemoglobin 10.5 L 10.9 L 9.9 L 11.5-16.0 G/DL Hematocrit 31 L 31 L 28 L 35-52 % Mean Corpuscular Volume 81 77 L 76 L 80-99 FL Mean Corpuscular Hemoglobin 27 27 27 25-34 PG Mean Corpuscular Hemoglobin Concent 33 35 36 32-36 G/DL Red Cell Distribution Width 19.3 H 18.5 H 18.6 H 10.0-14.5 % Platelet Count 222 283 286 130-400 10^3/uL Mean Platelet Volume 9.1 8.7 9.3 7.4-10.4 FL Neutrophils (%) (Auto) 89 H 81 H 42-75 % Lymphocytes (%) (Auto) 8 L 12 12-44 % Monocytes (%) (Auto) 3 7 0-12 % Eosinophils (%) (Auto) 0 0 0-10 % Basophils (%) (Auto) 0 0 0-10 % Neutrophils # (Auto) 16.2 H 12.9 H 1.8-7.8 X 10^3 Lymphocytes # (Auto) 1.4 1.8 1.0-4.0 X 10^3 Monocytes # (Auto) 0.5 1.2 H 0.0-1.0 X 10^3 Eosinophils # (Auto) 0.1 0.0 0.0-0.3 10^3/uL Basophils # (Auto) 0.0 0.0 0.0-0.1 10^3/uL Neutrophils % (Manual) 90 % Lymphocytes % (Manual) 8 % Monocytes % (Manual) 2 % Poikilocytosis SLIGHT Anisocytosis SLIGHT Microcytosis SLIGHT Tima Cells SLIGHT Crenated Cell MODERATE Sodium Level 141 135-145 MMOL/L Potassium Level 3.1 L 3.6-5.0 MMOL/L Chloride Level 106 98-107 MMOL/L Carbon Dioxide Level 25 21-32 MMOL/L Anion Gap 10 5-14 MMOL/L Blood Urea Nitrogen 6 L 7-18 MG/DL Creatinine 0.66 0.60-1.30 MG/DL Estimat Glomerular Filtration Rate > 60 BUN/Creatinine Ratio 9 Glucose Level 146 H 70-105 MG/DL Calcium Level 8.1 L 8.5-10.1 MG/DL Phosphorus Level 3.0 2.3-4.7 MG/DL Magnesium Level 1.4 L 1.8-2.4 MG/DL 02/08/18 02/08/18 02/09/18 02/09/18 23:00 23:56 00:00 00:00 Temp 99.1 Pulse 118 123 Resp 12 16 B/P (MAP) 114/62 (79) 105/65 (78) Pulse Ox 97 97 O2 Delivery Room Air Room Air Room Air 02/09/18 02/09/18 02/09/18 02/09/18 01:00 01:00 02:00 03:00 Pulse 121 121 124 117 Resp 16 13 10 B/P (MAP) 114/66 (82) 102/46 (64) 112/69 (83) Pulse Ox 96 97 98 O2 Delivery Room Air Room Air Room Air 02/09/18 02/09/18 02/09/18 02/09/18 03:27 04:00 04:00 05:00 Pulse 128 121 Resp 14 15 B/P (MAP) 99/58 (72) 91/54 (66) Pulse Ox 97 98 97 98 O2 Delivery Room Air Room Air Nasal Cannula Room Air O2 Flow Rate 1.00 02/09/18 02/09/18 02/09/18 02/09/18 06:00 07:00 07:00 07:00 Pulse 115 105 109 Resp 12 16 14 B/P (MAP) 102/59 (73) 97/58 (71) Pulse Ox 99 100 O2 Delivery Room Air Room Air 02/09/18 02/09/18 02/09/18 02/09/18 08:00 08:35 09:00 10:00 Pulse 113 122 114 Resp 14 12 13 B/P (MAP) 98/62 (74) 101/58 (72) 104/59 (74) Pulse Ox 99 100 93 98 O2 Delivery Room Air Nasal Cannula Room Air Room Air O2 Flow Rate 1.50 02/09/18 00:00 Intake Total 0 ml Output Total 7880 ml Balance -7880 ml Lungs are clear, but poor effort. abdomen is soft, distended, no bowel sounds noted. Incision covered. Assessment: 1. POD #1 s/p TITA, bilateral salpingectomy (cold knife conization with excessive bleeding, converted to TVH due to bleeding, with cystotomy, and rectal laceration, converted to open procedure due to adhesions, bladder laceration, left adnexal mass that could not be assessed vaginally), s/p open cystotomy repair with placement of suprapubic catheter. 2. Acute blood loss anemia - s/p intraoperative 6 units PRBCs, 4 units FFP, albumin. Hgb stable since last night with no evidence of further bleeding. 3. hypokalemia and hypomagnesemia s/p replacement 4. preoperative vaginal infection, - continue antibiotics VS, excellent UO from suprapubic and urethral catheter. sanches red. Continue IV fluids, clear liquids until passing flatus. Will transfer to floor today. Will increase activity. Continue Lovenox and SCDs. Continue to encourage IS. Await pathology. Grossly this is cervical cancer, staging pending. Objective Exam Vital Signs Date Time Temp Pulse Resp B/P (MAP) Pulse Ox O2 Delivery O2 Flow Rate FiO2 02/09/18 10:00 114 13 104/59 (74) 98 Room Air 02/09/18 09:00 122 12 101/58 (72) 93 Room Air 02/09/18 08:35 100 Nasal Cannula 1.50 02/09/18 08:00 113 14 98/62 (74) 99 Room Air 02/09/18 07:00 109 14 97/58 (71) 100 Room Air 02/09/18 07:00 16 02/09/18 07:00 105 02/09/18 06:00 115 12 102/59 (73) 99 Room Air 02/09/18 05:00 121 15 91/54 (66) 98 Room Air 02/09/18 04:00 97 Nasal Cannula 1.00 02/09/18 04:00 128 14 99/58 (72) 98 Room Air 02/09/18 03:27 97 Room Air 02/09/18 03:00 117 10 112/69 (83) 98 Room Air 02/09/18 02:00 124 13 102/46 (64) 97 Room Air 02/09/18 01:00 121 02/09/18 01:00 121 16 114/66 (82) 96 Room Air 02/09/18 00:00 Room Air 02/09/18 00:00 123 16 105/65 (78) 97 Room Air 02/08/18 23:56 99.1 02/08/18 23:00 118 12 114/62 (79) 97 Room Air 02/08/18 22:00 113 12 111/66 (81) 97 Room Air 02/08/18 21:00 20 02/08/18 21:00 111 10 117/74 (88) 97 Room Air 02/08/18 21:00 Room Air 02/08/18 20:00 108 8 128/79 (95) 98 Room Air 02/08/18 20:00 99.6 02/08/18 19:00 102 02/08/18 19:00 99 12 126/82 (97) 98 Room Air 02/08/18 18:00 89 13 126/78 (94) 98 Room Air 02/08/18 17:00 89 15 125/72 (89) 99 Room Air 02/08/18 16:00 81 14 125/76 (92) 99 Room Air 02/08/18 15:30 78 12 122/80 (94) 99 Room Air 02/08/18 15:00 80 11 128/80 (96) 99 Room Air 02/08/18 14:45 80 12 123/72 (89) 98 Room Air 02/08/18 14:30 78 11 118/72 (87) 96 Room Air 02/08/18 14:15 82 12 123/73 (90) 96 Room Air 02/08/18 14:00 82 12 116/71 (86) 92 Room Air 02/08/18 13:54 91 02/08/18 13:50 Room Air 02/08/18 13:50 97.6 87 13 122/69 (86) 94 Room Air I & O 02/09/18 07:00 Intake Total 6450 ml Output Total 8880 ml Balance -2430 ml Capillary Refill : General Appearance: Mild Distress HEENT: Other (right upper lip, small laceration on inner upper lip with swelling ) Respiratory: Lungs Clear, Decreased Breath Sounds; No Respiratory Distress, No Rhonci, No Wheezing Cardiovascular: Regular Rate, Rhythm Gastrointestinal: abnormal bowel sounds, distended; No guarding, No rebound; tenderness Neurologic/Psychiatric: Alert, Oriented x3 Skin: Normal Color, Warm/Dry Results Lab Laboratory Tests 02/08/18 12:00: White Blood Count 18.2H, Red Blood Count 3.90L, Hemoglobin 10.5L, Hematocrit 31L , Mean Corpuscular Volume 81, Mean Corpuscular Hemoglobin 27, Mean Corpuscular Hemoglobin Concent 33, Red Cell Distribution Width 19.3H, Platelet Count 222, Mean Platelet Volume 9.1, Neutrophils (%) (Auto) 89H, Lymphocytes (%) (Auto) 8L , Monocytes (%) (Auto) 3, Eosinophils (%) (Auto) 0, Basophils (%) (Auto) 0, Neutrophils # (Auto) 16.2H, Lymphocytes # (Auto) 1.4, Monocytes # (Auto) 0.5, Eosinophils # (Auto) 0.1, Basophils # (Auto) 0.0, Neutrophils % (Manual) 90, Lymphocytes % (Manual) 8, Monocytes % (Manual) 2, Poikilocytosis SLIGHT, Anisocytosis SLIGHT, Microcytosis SLIGHT, [place] Cells SLIGHT, Crenated Cell MODERATE 02/08/18 17:13: White Blood Count 17.1H, Red Blood Count 4.03L, Hemoglobin 10.9L, Hematocrit 31L , Mean Corpuscular Volume 77L, Mean Corpuscular Hemoglobin 27, Mean Corpuscular Hemoglobin Concent 35, Red Cell Distribution Width 18.5H, Platelet Count 283, Mean Platelet Volume 8.7 02/09/18 02:48: White Blood Count 15.9H, Red Blood Count 3.65L, Hemoglobin 9.9L, Hematocrit 28L , Mean Corpuscular Volume 76L, Mean Corpuscular Hemoglobin 27, Mean Corpuscular Hemoglobin Concent 36, Red Cell Distribution Width 18.6H, Platelet Count 286, Mean Platelet Volume 9.3, Neutrophils (%) (Auto) 81H, Lymphocytes (%) (Auto) 12 , Monocytes (%) (Auto) 7, Eosinophils (%) (Auto) 0, Basophils (%) (Auto) 0, Neutrophils # (Auto) 12.9H, Lymphocytes # (Auto) 1.8, Monocytes # (Auto) 1.2H, Eosinophils # (Auto) 0.0, Basophils # (Auto) 0.0, Sodium Level 141, Potassium Level 3.1L, Chloride Level 106, Carbon Dioxide Level 25, Anion Gap 10, Blood Urea Nitrogen 6L, Creatinine 0.66, Estimat Glomerular Filtration Rate > 60, BUN/ Creatinine Ratio 9, Glucose Level 146H, Calcium Level 8.1L, Phosphorus Level 3.0 , Magnesium Level 1.4L Assessment/Plan Assessment/Plan Assess & Plan/Chief Complaint ee above Clinical Quality Measures DVT/VTE Risk/Contraindication: Risk Factor Score Per Nursin RFS Level Per Nursing on Admit: 4+=Very High KORY PENNINGTON DO February 09, 2018 11:02
[2018-02-09] MEDS ORDERED: ceFAZolin INJECTION 1,000 MG in NS (IVPB) 50 ML IV SCH (14:00)
[2018-02-09] MEDS ORDERED: ACETAMINOPHEN 500 MG TAB (TYLENOL) PO PRN (16:15)
[2018-02-09] MEDS ORDERED: ACETAMINOPHEN 500 MG TAB (TYLENOL) ONE (17:14)
[2018-02-09 17:47] LABS: HEMATOCRIT 26 % (35-52); HEMOGLOBIN 8.6 G/DL (11.5-16.0); MEAN CORPUSCULAR HEMOGLOBIN 27 PG (25-34); MEAN CORPUSCULAR HGB CONC 34 G/DL (32-36); MEAN CORPUSCULAR VOLUME 79 FL (80-99); PLATELET COUNT 240 10^3/uL (130-400); RED BLOOD COUNT 3.21 10^6/uL (4.35-5.85); RED CELL DISTRIBUTION WIDTH 19.3 % (10.0-14.5); WHITE BLOOD COUNT 14.5 10^3/uL (4.3-11.0)
[2018-02-09 17:48] LABS: BASOPHILS % (AUTO) 0 % (0-10); EOSINOPHILS % (AUTO) 0 % (0-10); LYMPHOCYTES # (AUTO) 2.2 X 10^3 (1.0-4.0); LYMPHOCYTES % (AUTO) 15 % (12-44); MONOCYTES # (AUTO) 0.7 X 10^3 (0.0-1.0); MONOCYTES % (AUTO) 5 % (0-12); NEUTROPHILS # (AUTO) 11.6 X 10^3 (1.8-7.8); NEUTROPHILS % (AUTO) 80 % (42-75)
[2018-02-09] MEDS ORDERED: FUROSEMIDE 40 MG/4 ML INJ (LASIX) IVP NR (18:00)
[2018-02-09] MEDS: morphine PCA 30 MG/30 ML VIAL IV PRN (18:03)
--- NOTE | 2018-02-09 18:10 | Progress Note-Standard ---
Standard Progress Note Progress Notes/Assess & Plan Date Seen by Provider: February 09, 2018 Time Seen by Provider: 17:40 Progress/Assessment & Plan Patient transferred to floor. Has developed fever. States no nausea, no emesis , no flatus but feels "hot". T 102.5. Also decrease IS. States "I can't do as much as I could". States headache better. WBC decreasing, Hgb dec (diluational?) Lungs with dec breath sounds Abdomen is softer but still distended, no active bowel sounds. Suspect atelectasis. Neb given Will schedule nebs Encourage IS Up in chair with ambulation tomorrow. Advance diet tomorrow Laboratory Tests Test 02/09/18 02:48 02/09/18 17:39 Range/Units White Blood Count 15.9 H 14.5 H 4.3-11.0 10^3/uL Red Blood Count 3.65 L 3.21 L 4.35-5.85 10^6/uL Hemoglobin 9.9 L 8.6 L 11.5-16.0 G/DL Hematocrit 28 L 26 L 35-52 % Mean Corpuscular Volume 76 L 79 L 80-99 FL Mean Corpuscular Hemoglobin 27 27 25-34 PG Mean Corpuscular Hemoglobin Concent 36 34 32-36 G/DL Red Cell Distribution Width 18.6 H 19.3 H 10.0-14.5 % Platelet Count 286 240 130-400 10^3/uL Mean Platelet Volume 9.3 9.0 7.4-10.4 FL Neutrophils (%) (Auto) 81 H 80 H 42-75 % Lymphocytes (%) (Auto) 12 15 12-44 % Monocytes (%) (Auto) 7 5 0-12 % Eosinophils (%) (Auto) 0 0 0-10 % Basophils (%) (Auto) 0 0 0-10 % Neutrophils # (Auto) 12.9 H 11.6 H 1.8-7.8 X 10^3 Lymphocytes # (Auto) 1.8 2.2 1.0-4.0 X 10^3 Monocytes # (Auto) 1.2 H 0.7 0.0-1.0 X 10^3 Eosinophils # (Auto) 0.0 0.0 0.0-0.3 10^3/uL Basophils # (Auto) 0.0 0.0 0.0-0.1 10^3/uL Sodium Level 141 135-145 MMOL/L Potassium Level 3.1 L 3.6-5.0 MMOL/L Chloride Level 106 98-107 MMOL/L Carbon Dioxide Level 25 21-32 MMOL/L Anion Gap 10 5-14 MMOL/L Blood Urea Nitrogen 6 L 7-18 MG/DL Creatinine 0.66 0.60-1.30 MG/DL Estimat Glomerular Filtration Rate > 60 BUN/Creatinine Ratio 9 Glucose Level 146 H 70-105 MG/DL Calcium Level 8.1 L 8.5-10.1 MG/DL Phosphorus Level 3.0 2.3-4.7 MG/DL Magnesium Level 1.4 L 1.8-2.4 MG/DL BMP and Mg level pending. May continue to replace MG. 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
[2018-02-09 18:17] LABS: BUN/CREATININE RATIO 6; CALCIUM 8.6 MG/DL (8.5-10.1); CARBON DIOXIDE 26 MMOL/L (21-32); CHLORIDE 106 MMOL/L (98-107); CREATININE SERUM 0.65 MG/DL (0.60-1.30); GFR ESTIMATED > 60; GLUCOSE 145 MG/DL (70-105); POTASSIUM 3.6 MMOL/L (3.6-5.0); SODIUM 140 MMOL/L (135-145)
[2018-02-09] MEDS ORDERED: cefTRIAXone INJECTION 1,000 MG in NS (IVPB) 50 ML IV SCH (22:00)
[2018-02-10 00:45] VITALS: BP 103/61
[2018-02-10] MEDS: KETOROLAC 30 MG/ML VIAL IVP SCH ×2 (00:48→06:36)
[2018-02-10] MEDS: D5 LR IV SOLUTION 1,000 ML IV SCH ×2 (04:58→14:59)
[2018-02-10 04:59] VITALS: BP 100/61
[2018-02-10 06:45] LABS: BASOPHILS % (AUTO) 0 % (0-10); EOSINOPHILS # (AUTO) 0.2 10^3/uL (0.0-0.3); EOSINOPHILS % (AUTO) 2 % (0-10); HEMATOCRIT 24 % (35-52); LYMPHOCYTES # (AUTO) 1.6 X 10^3 (1.0-4.0); LYMPHOCYTES % (AUTO) 11 % (12-44); MEAN CORPUSCULAR HEMOGLOBIN 27 PG (25-34); MEAN CORPUSCULAR HGB CONC 33 G/DL (32-36); MEAN CORPUSCULAR VOLUME 81 FL (80-99); MONOCYTES # (AUTO) 0.7 X 10^3 (0.0-1.0); MONOCYTES % (AUTO) 5 % (0-12); NEUTROPHILS # (AUTO) 11.5 X 10^3 (1.8-7.8); NEUTROPHILS % (AUTO) 82 % (42-75); PLATELET COUNT 244 10^3/uL (130-400); RED BLOOD COUNT 3.01 10^6/uL (4.35-5.85); RED CELL DISTRIBUTION WIDTH 19.9 % (10.0-14.5)
[2018-02-10 07:03] LABS: BUN/CREATININE RATIO 12; CALCIUM 8.3 MG/DL (8.5-10.1); CARBON DIOXIDE 28 MMOL/L (21-32); CHLORIDE 107 MMOL/L (98-107); CREATININE SERUM 0.68 MG/DL (0.60-1.30); GFR ESTIMATED > 60; GLUCOSE 115 MG/DL (70-105); MAGNESIUM 1.8 MG/DL (1.8-2.4); POTASSIUM 3.5 MMOL/L (3.6-5.0); SODIUM 142 MMOL/L (135-145)
[2018-02-10 08:00] VITALS: BP 115/64
[2018-02-10] MEDS: RT-ALBUTEROL SULF 2.5 MG/3 ML PRE-MIX VIAL INH PRN (09:46)
[2018-02-10] MEDS: ENOXAPARIN 40 MG/0.4 ML (LOVENOX) SYR SC SCH (09:57)
[2018-02-10] MEDS: DOCUSATE SODIUM 100 MG (COLACE) CAP PO SCH ×2 (09:57→21:09)
[2018-02-10] MEDS: metroNIDAZOLE 500MG/100ML IVPB 100 ML IV SCH ×2 (09:57→21:09)
[2018-02-10] MEDS ORDERED: HYDROcodone/APAP 10 MG/325 MG (LORTAB) TAB PO PRN (10:45)
--- NOTE | 2018-02-10 10:47 | Progress Note (SOAP) ---
Subjective Date Seen by Provider: February 10, 2018 Time Seen by Provider: 10:45 Subjective/Events-last exam Fever has resolved and O2 sats improved with IS and lasix x 1. She has ambulated x 1 and sat in chair. Finally passing flatus and tolerating clears. Urine still sanches. Some vaginal drainage when up and walking today. (hasn't been up yet). Wants to shower. 02/09/18 02/10/18 02/10/18 02/10/18 22:53 00:45 02:26 04:59 Temp 98.6 97.6 Pulse 115 104 Resp 18 16 B/P (MAP) 103/61 (75) 100/61 (74) Pulse Ox 98 97 96 97 O2 Delivery Room Air Room Air Room Air Room Air 02/10/18 02/10/18 06:40 09:48 Pulse Ox 99 100 O2 Delivery Room Air Room Air 02/10/18 00:00 Intake Total 850 ml Output Total 2375 ml Balance -1525 ml Laboratory Tests Test 02/09/18 15:37 02/09/18 17:39 02/10/18 06:10 Range/Units Magnesium Level 1.9 1.8 1.8-2.4 MG/DL White Blood Count 14.5 H 14.0 H 4.3-11.0 10^3/uL Red Blood Count 3.21 L 3.01 L 4.35-5.85 10^6/uL Hemoglobin 8.6 L 8.0 L 11.5-16.0 G/DL Hematocrit 26 L 24 L 35-52 % Mean Corpuscular Volume 79 L 81 80-99 FL Mean Corpuscular Hemoglobin 27 27 25-34 PG Mean Corpuscular Hemoglobin Concent 34 33 32-36 G/DL Red Cell Distribution Width 19.3 H 19.9 H 10.0-14.5 % Platelet Count 240 244 130-400 10^3/uL Mean Platelet Volume 9.0 9.0 7.4-10.4 FL Neutrophils (%) (Auto) 80 H 82 H 42-75 % Lymphocytes (%) (Auto) 15 11 L 12-44 % Monocytes (%) (Auto) 5 5 0-12 % Eosinophils (%) (Auto) 0 2 0-10 % Basophils (%) (Auto) 0 0 0-10 % Neutrophils # (Auto) 11.6 H 11.5 H 1.8-7.8 X 10^3 Lymphocytes # (Auto) 2.2 1.6 1.0-4.0 X 10^3 Monocytes # (Auto) 0.7 0.7 0.0-1.0 X 10^3 Eosinophils # (Auto) 0.0 0.2 0.0-0.3 10^3/uL Basophils # (Auto) 0.0 0.0 0.0-0.1 10^3/uL Sodium Level 140 142 135-145 MMOL/L Potassium Level 3.6 3.5 L 3.6-5.0 MMOL/L Chloride Level 106 107 98-107 MMOL/L Carbon Dioxide Level 26 28 21-32 MMOL/L Anion Gap 8 7 5-14 MMOL/L Blood Urea Nitrogen 4 L 8 7-18 MG/DL Creatinine 0.65 0.68 0.60-1.30 MG/DL Estimat Glomerular Filtration Rate > 60 > 60 BUN/Creatinine Ratio 6 12 Glucose Level 145 H 115 H 70-105 MG/DL Calcium Level 8.6 8.3 L 8.5-10.1 MG/DL General appearance much improved. Talking and smiling. Abdomen with dec distension, few bowel sounds but present all 4 quadrants. Will DC IV meds and change all to po except antibiotics. Continue fluids until taking po well. Objective Exam Vital Signs Date Time Temp Pulse Resp B/P (MAP) Pulse Ox O2 Delivery O2 Flow Rate FiO2 02/10/18 09:48 100 Room Air 02/10/18 06:40 99 Room Air 02/10/18 04:59 97.6 104 16 100/61 (74) 97 Room Air 02/10/18 02:26 96 Room Air 02/10/18 00:45 98.6 115 18 103/61 (75) 97 Room Air 02/09/18 22:53 98 Room Air 02/09/18 20:40 95 Room Air 02/09/18 20:40 18 02/09/18 20:30 97.6 114 18 96/52 (67) 95 Room Air 02/09/18 19:58 96 Room Air 02/09/18 18:10 102.2 93/ Nasal Cannula 1.00 02/09/18 18:03 20 02/09/18 17:25 102.5 92/ Nasal Cannula 1.00 02/09/18 17:24 102.5 02/09/18 17:21 100 Nasal Cannula 2.00 02/09/18 17:00 102.4 93/ Nasal Cannula 1.00 02/09/18 16:30 100.7 02/09/18 15:35 99.8 111 20 126/74 (91) 100 Nasal Cannula 1.00 02/09/18 12:00 99.6 113 16 115/71 (86) 100 Nasal Cannula 1.00 I & O 02/10/18 07:00 Intake Total 1250 ml Output Total 4675 ml Balance -3425 ml Capillary Refill : General Appearance: No Apparent Distress Results Lab Laboratory Tests 02/09/18 15:37: Magnesium Level 1.9 02/09/18 17:39: White Blood Count 14.5H, Red Blood Count 3.21L, Hemoglobin 8.6L, Hematocrit 26L , Mean Corpuscular Volume 79L, Mean Corpuscular Hemoglobin 27, Mean Corpuscular Hemoglobin Concent 34, Red Cell Distribution Width 19.3H, Platelet Count 240, Mean Platelet Volume 9.0, Neutrophils (%) (Auto) 80H, Lymphocytes (%) (Auto) 15 , Monocytes (%) (Auto) 5, Eosinophils (%) (Auto) 0, Basophils (%) (Auto) 0, Neutrophils # (Auto) 11.6H, Lymphocytes # (Auto) 2.2, Monocytes # (Auto) 0.7, Eosinophils # (Auto) 0.0, Basophils # (Auto) 0.0, Sodium Level 140, Potassium Level 3.6, Chloride Level 106, Carbon Dioxide Level 26, Anion Gap 8, Blood Urea Nitrogen 4L, Creatinine 0.65, Estimat Glomerular Filtration Rate > 60, BUN/ Creatinine Ratio 6, Glucose Level 145H, Calcium Level 8.6 02/10/18 06:10: Magnesium Level 1.8, White Blood Count 14.0H, Red Blood Count 3.01L, Hemoglobin 8.0L, Hematocrit 24L, Mean Corpuscular Volume 81, Mean Corpuscular Hemoglobin 27 , Mean Corpuscular Hemoglobin Concent 33, Red Cell Distribution Width 19.9H, Platelet Count 244, Mean Platelet Volume 9.0, Neutrophils (%) (Auto) 82H, Lymphocytes (%) (Auto) 11L, Monocytes (%) (Auto) 5, Eosinophils (%) (Auto) 2, Basophils (%) (Auto) 0, Neutrophils # (Auto) 11.5H, Lymphocytes # (Auto) 1.6, Monocytes # (Auto) 0.7, Eosinophils # (Auto) 0.2, Basophils # (Auto) 0.0, Sodium Level 142, Potassium Level 3.5L, Chloride Level 107, Carbon Dioxide Level 28, Anion Gap 7, Blood Urea Nitrogen 8, Creatinine 0.68, Estimat Glomerular Filtration Rate > 60, BUN/Creatinine Ratio 12, Glucose Level 115H, Calcium Level 8.3L Microbiology 02/08/18 MRSA Screen - Final, Complete MRSA not isolated Assessment/Plan Assessment/Plan Assess & Plan/Chief Complaint see above Clinical Quality Measures DVT/VTE Risk/Contraindication: Risk Factor Score Per Nursin RFS Level Per Nursing on Admit: 4+=Very High KORY PENNINGTON DO February 10, 2018 10:47
[2018-02-10 12:00] VITALS: BP 124/69
[2018-02-10] MEDS: IBUPROFEN 600 MG (MOTRIN) TAB PO SCH ×2 (12:34→20:58)
[2018-02-10] MEDS: BISACODYL 5 MG (DULCOLAX) TABLET PO SCH (15:30)
[2018-02-10 16:00] VITALS: BP 110/56
[2018-02-10] MEDS: IRON POLYSAC 150 MG CAP (NIFEREX) PO SCH (17:00)
[2018-02-10] MEDS ORDERED: BELLADONNA ALK/OPIUM (B & O) 30 MG SUPP PR PRN (20:00)
[2018-02-10 20:16] VITALS: BP 112/70
[2018-02-10] MEDS: FAMOTIDINE 20 MG (PEPCID) TABLET PO SCH (21:09)
[2018-02-10] MEDS ORDERED: cefTRIAXone 1 GM (ROCEPHIN) VIAL ONE (21:56)
[2018-02-10] MEDS ORDERED: NS (IVPB) 50 ML ONE (22:00)
[2018-02-10] MEDS ORDERED: cefTRIAXone INJECTION 1,000 MG in NS (IVPB) 50 ML IV SCH (22:00)
[2018-02-11] VITALS (13 sets, daily range): BP systolic 100–130; BP diastolic 62–85
[2018-02-11] MEDS: IBUPROFEN 600 MG (MOTRIN) TAB PO SCH ×5 (03:37→23:58)
[2018-02-11 05:52] LABS: BASOPHILS % (AUTO) 0 % (0-10); EOSINOPHILS # (AUTO) 0.5 10^3/uL (0.0-0.3); EOSINOPHILS % (AUTO) 6 % (0-10); HEMATOCRIT 23 % (35-52); HEMOGLOBIN 7.3 G/DL (11.5-16.0); LYMPHOCYTES # (AUTO) 1.4 X 10^3 (1.0-4.0); LYMPHOCYTES % (AUTO) 16 % (12-44); MEAN CORPUSCULAR HEMOGLOBIN 27 PG (25-34); MEAN CORPUSCULAR HGB CONC 32 G/DL (32-36); MEAN CORPUSCULAR VOLUME 82 FL (80-99); MEAN PLATELET VOLUME 9.3 FL (7.4-10.4); MONOCYTES # (AUTO) 0.5 X 10^3 (0.0-1.0); MONOCYTES % (AUTO) 6 % (0-12); NEUTROPHILS % (AUTO) 72 % (42-75); PLATELET COUNT 238 10^3/uL (130-400); RED BLOOD COUNT 2.74 10^6/uL (4.35-5.85); RED CELL DISTRIBUTION WIDTH 19.4 % (10.0-14.5); WHITE BLOOD COUNT 8.4 10^3/uL (4.3-11.0)
[2018-02-11 06:11] LABS: BUN/CREATININE RATIO 16; CALCIUM 8.3 MG/DL (8.5-10.1); CARBON DIOXIDE 22 MMOL/L (21-32); CHLORIDE 110 MMOL/L (98-107); CREATININE SERUM 0.57 MG/DL (0.60-1.30); GFR ESTIMATED > 60; GLUCOSE 106 MG/DL (70-105); POTASSIUM 3.2 MMOL/L (3.6-5.0); SODIUM 142 MMOL/L (135-145)
[2018-02-11] MEDS ORDERED: NS IV 500 ML 500 ML IV SCH ×2 (08:30→09:00)
[2018-02-11] MEDS: D5 LR IV SOLUTION 1,000 ML IV SCH (09:24)
[2018-02-11] MEDS: diphenhydrAMINE 25 MG TAB (BENADRYL) PO SCH ×3 (09:57→19:11)
[2018-02-11] MEDS: DOCUSATE SODIUM 100 MG (COLACE) CAP PO SCH ×2 (09:57→20:29)
[2018-02-11] MEDS: IRON POLYSAC 150 MG CAP (NIFEREX) PO SCH ×2 (09:57→17:10)
[2018-02-11] MEDS: metroNIDAZOLE 500 MG (FLAGYL) TAB PO SCH ×3 (09:57→20:28)
[2018-02-11] MEDS: FAMOTIDINE 20 MG (PEPCID) TABLET PO SCH ×2 (09:58→20:29)
--- NOTE | 2018-02-11 12:50 | Progress Note (SOAP) ---
Subjective Date Seen by Provider: February 11, 2018 Time Seen by Provider: 07:10 Subjective/Events-last exam States she has had two BMs. Tolerating diet. No nausea. But states " I just don't feel as good as I did yesterday". Some vaginal drainage. Worsens when she is on the toilet. Creat 1 (not urine, but serosanguinous). Vaginal exam yesterday showed cuf closed but fluid from the cuff. No active bleeding, just bloody fluid. Urine is panel beater today but UO has decreased. Hgb has decreased. Repeat HGB 7.3 No evidence of continued bleeding, suspect dilutional and in urine but she is symptomatic. Lungs CTA Abdomen soft, mildly distended (improved). Inc c/d/i. No drainage from suprapubic catheter site. Review of Systems General: No Chills, No Night Sweats, No Fatigue; Appetite HEENT: No Head Aches, No Eye Pain, No Ear Pain, No Dysphasia, No Sinus Congestion, No Post Nasal Drip, No Sore Throat Pulmonary: No Dyspnea, No Cough, No Pleuritic Chest Pain Cardiovascular: No: Chest Pain, Palpitations, Orthopnea, Paroxysmal Noc. Dyspnea, Edema, Lt Headedness Gastrointestinal: Nausea; No: Diarrhea, Constipation, Hematochezia Genitourinary: No Dysuria, No Frequency, No Incontinence; Hematuria; No Retention Musculoskeletal: No: other, neck pain, shoulder pain, arm pain, back pain, hand pain, leg pain, foot pain Neurological: No: Weakness, Numbness, Incoordination, Change in speech, Confusion, Seizures, Other Objective Exam Vital Signs Date Time Temp Pulse Resp B/P (MAP) Pulse Ox O2 Delivery O2 Flow Rate FiO2 02/11/18 10:30 97.8 83 18 125/74 98 Room Air 02/11/18 10:17 97.8 84 20 120/75 99 Room Air 02/11/18 04:44 98.1 85 16 104/65 (78) 98 Room Air 02/11/18 00:45 98.0 85 14 100/62 (75) 99 Room Air 02/10/18 20:16 97.8 88 16 112/70 (84) 100 Room Air 02/10/18 16:00 97.4 115 20 110/56 (74) 96 Room Air 02/10/18 14:45 99.9 I & O 02/11/18 07:00 Intake Total 3000 ml Output Total 475 ml Balance 2525 ml Capillary Refill : Less Than 3 Seconds General Appearance: No Apparent Distress Respiratory: Lungs Clear Cardiovascular: Regular Rate, Rhythm Gastrointestinal: other (see above exam) Results Lab Laboratory Tests 02/10/18 16:39: Lab Scanned Report Transfusion Reaction Form 02/10/18 17:50: Blood Urea Nitrogen 12 02/10/18 17:55: Body Fluid Creatinine 1 02/11/18 05:18: Blood Urea Nitrogen 9, White Blood Count 8.4, Red Blood Count 2.74L, Hemoglobin 7.3L, Hematocrit 23L, Mean Corpuscular Volume 82, Mean Corpuscular Hemoglobin 27 , Mean Corpuscular Hemoglobin Concent 32, Red Cell Distribution Width 19.4H, Platelet Count 238, Mean Platelet Volume 9.3, Neutrophils (%) (Auto) 72, Lymphocytes (%) (Auto) 16, Monocytes (%) (Auto) 6, Eosinophils (%) (Auto) 6, Basophils (%) (Auto) 0, Neutrophils # (Auto) 6.0, Lymphocytes # (Auto) 1.4, Monocytes # (Auto) 0.5, Eosinophils # (Auto) 0.5H, Basophils # (Auto) 0.0, Sodium Level 142, Potassium Level 3.2L, Chloride Level 110H, Carbon Dioxide Level 22, Anion Gap 10, Creatinine 0.57L, Estimat Glomerular Filtration Rate > 60, BUN/Creatinine Ratio 16, Glucose Level 106H, Calcium Level 8.3L Microbiology 02/08/18 MRSA Screen - Final, Complete MRSA not isolated Assessment/Plan Assessment/Plan Assess & Plan/Chief Complaint POD #3 s/p TITA-LSO right salpingectomy, cystotomy repair with suprapubic catheter, rectal laceration repair, cold knife conization (converter to above due to bleeding and left adnexal mass/adhesions) - improving postoperatively 2. Acute blood loss anemia, s/p transfusion - will transfuse today 3. hypokalemia - s/p IV replacement, will give oral 4. hypomagnesemia - will give oral replacement, s/p IV replacement. 5. Plan dc this weekend. Clinical Quality Measures DVT/VTE Risk/Contraindication: Risk Factor Score Per Nursin RFS Level Per Nursing on Admit: 4+=Very High KORY PENNINGTON DO February 11, 2018 12:50
[2018-02-11] MEDS ORDERED: ALBUMIN 25% 25 GM/100 ML 100 ML IV NR (13:30)
[2018-02-11] MEDS ORDERED: FUROSEMIDE 40 MG/4 ML INJ (LASIX) IVP NR (13:30)
[2018-02-11] MEDS ORDERED: BO30SU PR ×2 (13:43)
[2018-02-11] MEDS ORDERED: FAMO20TA5 PO ×2 (13:43)
[2018-02-11] MEDS ORDERED: HYDR-3820 PO ×2 (13:43)
[2018-02-11] MEDS ORDERED: METR500T21 PO ×2 (13:43)
[2018-02-11] MEDS ORDERED: IBUP-844 PO ×2 (13:43)
[2018-02-11] MEDS ORDERED: FERR160T5 PO ×2 (13:48)
--- NOTE | 2018-02-11 14:07 | Discharge Inst-Women's Service ---
Discharge Inst-Women's Serv Depart Medication/Instructions New, Converted or Re-Newed RX: RX on Chart Instructions no lifiting over 25 lbs record output from each catheter Call if concerns expect vaginal discharge/bleeding up to two weeks Final Diagnosis cervical cancer, 1B1 acute blood loss anemia cystotomy with repair rectal laceration hemorrhoids total abdominal hysterectomy, left salpingoophorectomy, right salpingectomy cystotomy suprapubic catheter hypokalemia hypomagnesemia Consults/Follow Up Additional Follow Up: Yes (1 week for icision check/staple removal and removal of suprapubic catheter) Activity Activity: Activity as Tolerated Driving Instructions: No Driving for 1 Week NO SMOKING: NO SMOKING Nothing Inside Vagina: No Douching, No [place], No Tampons Diet Discharge Diet: No Restrictions Symptoms to Report to : Bleeding Excessive, Pain Increased, Urine Color Change, Fever Over 101 Degrees F, Vaginal Bleeding Increase, Cramps in Feet or Legs, Vaginal Discharge Foul For Any Problems or Questions: Contact Your Physician, Go to Emergency Room, Go to Quick Care Skin/Wound Care Infection Signs and Symptoms: Increased Redness, Foul Odor of Wound, Increased Drainage, Skin Itchy or Has a Rash, Increased Swelling, Temperature Above 101 F Operative Area Clean and Dry: Keep Incision Clean/Dry (change drain sponge if soiled or wet) Stitches/[place]/Dermabond: Care of Za Bathing Instructions: KORY Machado DO February 11, 2018 14:02
[2018-02-11] MEDS ORDERED: KCL 20 MEQ TAB (K-DUR) PO NR (15:45)
[2018-02-11] MEDS: MAGNESIUM OXIDE (MAG-OX)400 MG TAB PO SCH (17:10)
[2018-02-12] VITALS: BP 124/80
[2018-02-12 04:05] VITALS: BP 117/76
[2018-02-12] MEDS ORDERED: NS IV 500 ML 500 ML IV SCH (04:15)
[2018-02-12] MEDS ORDERED: NS IV 500 ML 500 ML ONE (04:17)
[2018-02-12 05:07] LABS: BASOPHILS % (AUTO) 0 % (0-10); EOSINOPHILS # (AUTO) 0.5 10^3/uL (0.0-0.3); EOSINOPHILS % (AUTO) 7 % (0-10); HEMATOCRIT 26 % (35-52); HEMOGLOBIN 8.7 G/DL (11.5-16.0); LYMPHOCYTES # (AUTO) 1.4 X 10^3 (1.0-4.0); LYMPHOCYTES % (AUTO) 19 % (12-44); MEAN CORPUSCULAR HEMOGLOBIN 28 PG (25-34); MEAN CORPUSCULAR HGB CONC 34 G/DL (32-36); MEAN CORPUSCULAR VOLUME 82 FL (80-99); MEAN PLATELET VOLUME 9.3 FL (7.4-10.4); MONOCYTES # (AUTO) 0.5 X 10^3 (0.0-1.0); MONOCYTES % (AUTO) 7 % (0-12); NEUTROPHILS # (AUTO) 4.9 X 10^3 (1.8-7.8); NEUTROPHILS % (AUTO) 67 % (42-75); PLATELET COUNT 286 10^3/uL (130-400); RED BLOOD COUNT 3.12 10^6/uL (4.35-5.85); RED CELL DISTRIBUTION WIDTH 18.5 % (10.0-14.5); WHITE BLOOD COUNT 7.2 10^3/uL (4.3-11.0)
[2018-02-12] MEDS: IBUPROFEN 600 MG (MOTRIN) TAB PO SCH ×2 (05:22→12:35)
[2018-02-12 06:52] LABS: BUN/CREATININE RATIO 19; CALCIUM 8.6 MG/DL (8.5-10.1); CARBON DIOXIDE 24 MMOL/L (21-32); CHLORIDE 112 MMOL/L (98-107); CREATININE SERUM 0.57 MG/DL (0.60-1.30); GFR ESTIMATED > 60; GLUCOSE 108 MG/DL (70-105); MAGNESIUM 1.9 MG/DL (1.8-2.4); POTASSIUM 3.4 MMOL/L (3.6-5.0); SODIUM 144 MMOL/L (135-145)
[2018-02-12] MEDS ORDERED: KCL 20 MEQ TAB (K-DUR) PO SCH (07:00)
[2018-02-12] MEDS: D5 LR IV SOLUTION 1,000 ML IV SCH (07:26)
--- NOTE | 2018-02-12 07:34 | Progress Note-Standard ---
Standard Progress Note Progress Notes/Assess & Plan Date Seen by Provider: February 12, 2018 Time Seen by Provider: 07:15 Progress/Assessment & Plan Subjective Subjective/Events-last exam States she is doing better. Tolerating diet. No nausea. Having some difficulty with lightheadedness with ambulation, but otherwise overall better. 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 Objective Vital Sign - Last 24 Hours 02/11/18 02/11/18 02/11/18 02/11/18 10:05 10:17 10:30 12:00 Temp 97.4 97.8 97.8 98.0 Pulse 83 84 83 65 Resp 20 20 18 20 B/P (MAP) 122/74 (90) 120/75 125/74 118/75 (89) Pulse Ox 98 99 98 99 O2 Delivery Room Air Room Air Room Air Room Air 02/11/18 02/11/18 02/11/18 02/11/18 12:45 13:15 13:30 13:45 Temp 97.4 97.6 97.5 97.5 Pulse 73 68 76 70 Resp 18 18 20 16 B/P (MAP) 112/68 113/71 120/79 118/77 Pulse Ox 99 98 98 98 O2 Delivery Room Air Room Air Room Air Room Air 02/11/18 02/11/18 02/11/18 02/11/18 14:00 16:00 16:00 19:52 Temp 98.0 97.9 97.9 Pulse 82 82 Resp 18 20 20 B/P (MAP) 115/74 119/73 119/73 (88) Pulse Ox 98 99 99 97 O2 Delivery Room Air Room Air Room Air Room Air 02/11/18 02/12/18 02/12/18 20:25 00:00 04:05 Temp 97.2 97.7 97.6 Pulse 75 80 84 Resp 18 18 18 B/P (MAP) 130/85 (100) 124/80 (95) 117/76 (90) Pulse Ox 100 98 95 O2 Delivery Room Air Room Air Room Air Intake and Output 02/11/18 02/11/18 02/12/18 15:00 23:00 07:00 Intake Total 1000 ml 2580 ml 1000 ml Output Total 2650 ml 290 ml Balance 1000 ml -70 ml 710 ml Lungs CTA Abdomen soft, mildly distended (improved). Inc c/d/i. No drainage from suprapubic catheter site. Urine concentrated and slightly blood tinged Assessment/Plan Assessment/Plan Assess & Plan/Chief Complaint POD #4 s/p TITA-LSO right salpingectomy, cystotomy repair with suprapubic catheter, rectal laceration repair, cold knife conization (converter to above due to bleeding and left adnexal mass/adhesions) - improving postoperatively 2. Acute blood loss anemia, s/p transfusion 8total units 3. hypokalemia - continue potassium po 4. hypomagnesemia - continue oral replacement 5. Plan dc this weekend, possible later today if ambulation goes well. Laboratory Tests Test 02/12/18 04:34 Range/Units White Blood Count 7.2 4.3-11.0 10^3/uL Red Blood Count 3.12 L 4.35-5.85 10^6/uL Hemoglobin 8.7 L 11.5-16.0 G/DL Hematocrit 26 L 35-52 % Mean Corpuscular Volume 82 80-99 FL Mean Corpuscular Hemoglobin 28 25-34 PG Mean Corpuscular Hemoglobin Concent 34 32-36 G/DL Red Cell Distribution Width 18.5 H 10.0-14.5 % Platelet Count 286 130-400 10^3/uL Mean Platelet Volume 9.3 7.4-10.4 FL Neutrophils (%) (Auto) 67 42-75 % Lymphocytes (%) (Auto) 19 12-44 % Monocytes (%) (Auto) 7 0-12 % Eosinophils (%) (Auto) 7 0-10 % Basophils (%) (Auto) 0 0-10 % Neutrophils # (Auto) 4.9 1.8-7.8 X 10^3 Lymphocytes # (Auto) 1.4 1.0-4.0 X 10^3 Monocytes # (Auto) 0.5 0.0-1.0 X 10^3 Eosinophils # (Auto) 0.5 H 0.0-0.3 10^3/uL Basophils # (Auto) 0.0 0.0-0.1 10^3/uL Sodium Level 144 135-145 MMOL/L Potassium Level 3.4 L 3.6-5.0 MMOL/L Chloride Level 112 H 98-107 MMOL/L Carbon Dioxide Level 24 21-32 MMOL/L Anion Gap 8 5-14 MMOL/L Blood Urea Nitrogen 11 7-18 MG/DL Creatinine 0.57 L 0.60-1.30 MG/DL Estimat Glomerular Filtration Rate > 60 BUN/Creatinine Ratio 19 Glucose Level 108 H 70-105 MG/DL Calcium Level 8.6 8.5-10.1 MG/DL Magnesium Level 1.9 1.8-2.4 MG/DL Final Diagnosis POD #4 s/p TITA-LSO right salpingectomy, cystotomy repair with suprapubic catheter, rectal laceration repair, cold knife conization (converter to above due to bleeding and left adnexal mass/adhesions) - improving postoperatively 2. Acute blood loss anemia, s/p transfusion 8total units 3. hypokalemia - continue potassium po 4. hypomagnesemia - continue oral replacement 5. Plan dc this weekend, possible later today if ambulation goes well. SOFIYA BUTLER DO February 12, 2018 7:34 am
[2018-02-12 08:06] VITALS: BP 109/77
[2018-02-12] MEDS: IRON POLYSAC 150 MG CAP (NIFEREX) PO SCH (08:08)
[2018-02-12] MEDS: FAMOTIDINE 20 MG (PEPCID) TABLET PO SCH (08:08)
[2018-02-12] MEDS: DOCUSATE SODIUM 100 MG (COLACE) CAP PO SCH (08:08)
[2018-02-12] MEDS: MAGNESIUM OXIDE (MAG-OX)400 MG TAB PO SCH (08:08)
[2018-02-12] MEDS: metroNIDAZOLE 500 MG (FLAGYL) TAB PO SCH ×2 (08:08→12:35)
[2018-02-12 12:37] VITALS: BP 119/78
--- NOTE | 2018-02-16 09:38 | Physician Query Clarification ---
PQ-Accidental Op Laceration Admission/Discharge Admission Date: February 08, 2018 at 06:10 Discharge Date: February 12, 2018 at 20:00 Operative Report: I then noted that as I pushed the vaginal epithelium off the posterior vagina, there appeared to be a small rectal laceration. This was left for repair later. I could not easily enter the anterior culdesac and then made an incidental laceration into the bladder. This was noted immediately and was about 1 cm. I placed a stitch wit the intent to return to repair this Question: Should this rectal and bladder be classified as: Please document a response below. PHYSICIAN RESPONSE Classified as: A complication of the procedure Explanation of clincal finding An accepted complication that occurred due to the difficulty of the procedure and abnormalities found at the time of surgery (unexpected adhesions) In responding to this query, please exercise your independent professional judgment. The purpose of this communication is to more accurately reflect the complexity of your patients condition. The fact that a question is asked does not imply that any particular answer is desired or expected. Thank you for your timely response to this clarification. Requestors name: Vikki Wild THIS PHYSICIAN QUERY FORM IS A PERMANENT PART OF THE MEDICAL RECORD BRENNA PRUETT February 16, 2018 09:38 KORY PENNINGTON DO February 23, 2018 17:09
[2018-02-18] MEDS ORDERED: HYOS0.3732 PO (21:48)
[2018-02-18] MEDS ORDERED: NITR-65 PO (21:48)
[2018-02-18] MEDS ORDERED: PHEN-639 PO (21:48)
--- NOTE | 2018-02-23 17:08 | Discharge Summary ---
Diagnosis/Chief Complaint Date of Admission February 08, 2018 at 06:10 Date of Discharge February 12, 2018 at 20:00 Discharge Date: February 12, 2018 Admission Diagnosis Admission Diagnosis cervical lesion vaginal hemorrhage acute blood loss anemia incidental cystotomy with suprapubic catheter placement Discharge Diagnosis same transfusion acute blood loss anemia cold knife cone biopsy Hysterectomy, left salpingoophorectomy, right salpingectomy cystotomy repair with suprapubic catheter placement hypokalemia bacterial vaginosis Reason Hospital Visit This is a 22 year old with a cervical nodule noted at time of vaginal delivery ( had limited care and I was 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 A biopsy was done at the time of delivery. 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 She was seen in the office and offered a LEEP procedure but declined this in the office. Colposcopy was done revealing a 2 - 2.5 cm cervical lesion. Due to circumstances and lack of insurance, decision was made to proceed with cold knife cone biopsy in the OR. This was done on 02/08/18. However, the lesion was deeper into the cervical os than previously known. There was bleeding that was not able to be controlled with cautery. Decision was made to proceed with hysterectomy (patient was previously expecting possibility of hysterectomy and desired sterilization). Vaginal hysterectomy was attempted, however due to adhesions and a large left adnexal mass, the surgery was converted to an open procedure. There was also an incidental cystotomy and a small rectal laceration at the time of the vaginal hysterectomy. An abdominal hysterectomy with Left salpingoophorectomy was done. Also right salpingectomy. Received 6 units of blood and 4 units of FFP during the surgery. An open cystotomy repair was done and a suprapubic catheter placed. I also repaired the rectal laceration. The patient was admitted to women's services following surgery and pain management with Toradol and a FOUNDRY TECHNICIAN. She was admitted to the ICU for immediate post operative care. She received 2 additional units of packed red blood cells after surgery was completed. While in the ICU potassium was replaced. She was transferred to women's services after the first post operative night. Developed a post operative fever 102.5 with normal WBCs and no other focal symptoms. The fever resolved with incentive spirometry. She had no further fevers during her stay. She was continued on antibiotics after surgery due to preexisting bacterial vaginosis and UTI. The antibiotics were changed to po at discharge. Lovenox and SCDs were used for DVT prophylaxis. She was ambulating on post operative day 1 and urine output was excellent. Diet was advanced on post operative day 2 (once her bowel function was returning ). In addition, po pain medications were started and IV meds were removed. She had some decrease in O2 sats on day two and these resolved with lasix. oral potassium and magnesium were replaced. she was complaining of vaginal watery discharge. This was examined and there was discharge but appeared more sanguinous. Creatinine was tested and was 1 and therefore not urine. On postoperative day 4 she was doing well, Hgb stable, no fever, tolerating diet and pain medications. She was discharged to home. She received 4 days of IV antibiotics so UTI was treated but continued on po flagyl to complete treatment of the Bacterial vaginosis. She was instructed on care of the suprapubic catheter and urethral catheter and will have a CT cystogram prior to removal. She will keep the catheters for 1 week ( suprapubic) and 2 weeks post discharge (urethral). Discharge Summary Procedures: See above Cold knife cone, attempted Total vaginal hysterectomy, converted to Total abdominal hysterectomy, left salpingoophorectomy, right salpingectomy, lysis of adhesions, cystotomy with repair and placement of suprapubic catheter, rectal laceration repair transfusion of 8 units PRBCs, 4 units of FFP Discharge Physical Examination Allergies: Coded Allergies: Sulfa (Sulfonamide Antibiotics) (Unverified Allergy, Mild, HIVES, 10/23/16) sulfamethoxazole (Verified Allergy, Unknown, HIVES, 10/23/16) trimethoprim (Verified Allergy, Unknown, HIVES, 10/23/16) Vitals & I&Os 119/78 T 97.6 P 67 General Appearance: Alert, Oriented X3 Respiratory: Clear to Auscultation, Normal Air Movement Cardiovascular: Regular Rate, No Murmurs Abdominal: Normal Bowel Sounds, No Tenderness, Other (supropubic catheter in place with drain sponge) Hospital Course see above Labs see labs Discussion & Recommendations discharged home, see above initial pathology 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 Await final pathology. Discharge Condition at discharge stable Instructions to patient/family Please see electronic discharge instructions given to patient. Discharge Medications Reviewed and agree with Discharge Medication list on patient's Discharge Instruction sheet Clinical Quality Measures DVT/VTE Risk/Contraindication: Risk Factor Score Per Nursin RFS Level Per Nursing on Admit: 4+=Very High KORY PENNINGTON DO February 23, 2018 17:07
== END 2018-02-12 20:00 | disposition home or self-care (01) | DRG 740 ==
LOC: ICU 06:10 → SDC 06:10 → ICU 06:10 → UNDOADMIN 06:11 → ICU 06:11 → EDSTATUS 08:00 → ICU 13:50 → SDC 13:50 → LDRP 02-09 14:40 → ICU 02-09 14:40 → SDC 02-12 16:25 → LDRP 02-12 16:25 → 3RD 02-12 19:21 → UNDODISIN 02-12 20:00
PROVIDERS: ADMIT Obstetrics & Gynecology; ATTEND Obstetrics & Gynecology
PROC: 0UT70ZZ Resection of Bilateral Fallopian Tubes, Open Approach (ICD-10-PCS; 2018-02-08)
PROC: 0UT10ZZ Resection of Left Ovary, Open Approach (ICD-10-PCS; 2018-02-08)
PROC: 0DQP7ZZ Repair Rectum, Via Natural or Artificial Opening (ICD-10-PCS; 2018-02-08)
PROC: 0UBC7ZZ Excision of Cervix, Via Natural or Artificial Opening (ICD-10-PCS; 2018-02-08)
PROC: 0TQB0ZZ Repair Bladder, Open Approach (ICD-10-PCS; 2018-02-08)
PROC: 0T9C00Z Drainage of Bladder Neck with Drainage Device, Open Approach (ICD-10-PCS; 2018-02-08)
PROC: 0UT90ZZ Resection of Uterus, Open Approach (ICD-10-PCS; principal; 2018-02-08 07:47)
PROC: 0UTC0ZZ Resection of Cervix, Open Approach (ICD-10-PCS; 2018-02-08 07:47)
DX: C53.0 Malignant neoplasm of endocervix (principal); D62 Acute posthemorrhagic anemia; N99.72 Accidental puncture and laceration of a genitourinary system organ or structure during other procedure; K91.72 Accidental puncture and laceration of a digestive system organ or structure during other procedure; Y65.8 Other specified misadventures during surgical and medical care; J98.11 Atelectasis; N81.4 Uterovaginal prolapse, unspecified; K60.2 Anal fissure, unspecified; K64.4 Residual hemorrhoidal skin tags; E87.6 Hypokalemia; E83.42 Hypomagnesemia; N76.0 Acute vaginitis; B96.89 Other specified bacterial agents as the cause of diseases classified elsewhere; R51 Headache; S01.511A Laceration without foreign body of lip, initial encounter; Y70.3 Surgical instruments, materials and anesthesiology devices (including sutures) associated with adverse incidents
CPT/HCPCS: 36415; 71045; 74018; 80048; 82570; 83735; 84100; 84520; 84703; 85007; 85014; 85018; 85025; 85027; 86850; 86900; 86901; 86920; 87081; 88305; 88307; 94640; 94664; 94760

== ENCOUNTER → 2018-02-23 | Outpatient (CLI) | payer SELFPAY ==
[~2018-02-23] MED LIST changes: +BO30SU PR; +CATHETER FLUSH 10 ML SYR IV PRN; +FAMO20TA5 PO; +HYDR-3820 PO; +HYOS0.3732 PO; +IBUP-844 PO; +IOHEXOL 350 MG/ML 100 ML (OMNIPAQUE 350) VIAL IV ONE; +METR500T21 PO; +NITR-65 PO; +NS 250 ML (IVPB) BAG IV ONE; +PHEN-639 PO
--- NOTE | 2018-02-23 16:51 | Diagnostic Imaging Report ---
PROCEDURE: CT abdomen and pelvis with and without contrast. TECHNIQUE: Precontrast acquisitions were acquired through the abdomen and pelvis. Multiple contiguous axial images were obtained through the abdomen and pelvis after the administration of intravenous contrast. INDICATION: History of cervical cancer. Bladder injury. COMPARISON: None. FINDINGS: Included portions of the lung bases are clear. CT abdomen: The kidneys, adrenal glands, spleen, and pancreas have a normal CT appearance. Evaluation of the pancreas demonstrates punctate subcentimeter hypoenhancing focus within the lateral dome of the right lobe of the liver (image 11, series 3). Otherwise, liver has a normal appearance as well. Small bowel loops are nondistended. Moderate air and stool is noted scattered throughout the colon. Normal appendix is identified. There is no loculated fluid collection, free fluid, nor free air within the abdomen. No abnormal mesenteric or retroperitoneal adenopathy is seen. Bony structures show no acute abnormalities. CT pelvis: Arteaga catheter is present within the urinary bladder. Urinary bladder wall is markedly thickened. Urinary bladder is minimally distended. Note is made of focal defect of the posterior urinary bladder. Contrast does appear to extend inferiorly into the vagina (image 90, series 5). There is probable small amount of free fluid within the pelvis. No definitive loculated air-fluid collection is seen to suggest abscess. There is no free air. No abnormal lymph nodes are identified. Bony structures show no acute abnormalities. IMPRESSION: 1. 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 Clinical correlation recommended. 2. Probable small amount of free fluid within the pelvis, but no discernible loculated air-fluid collection is seen to suggest abscess. 3. Significant urinary bladder wall thickening; likely reactive. 4. Moderate colonic air and stool. Please correlate for constipation. 5. Subcentimeter hypoenhancing focus within the lateral dome of the right lobe of the liver. Conceivably, this could represent a small cyst, but is too small to adequately characterize based on this exam. Given the history of cancer, continued followup is recommended. Dictated by: Dictated on workstation # [id number]
== END ==
LOC: RAD 15:31
PROVIDERS: ATTEND Obstetrics & Gynecology
DX: N99.81 Other intraoperative complications of genitourinary system (principal); Z85.41 Personal history of malignant neoplasm of cervix uteri
CPT/HCPCS: 74178

== ENCOUNTER → 2018-03-07 | Outpatient (CLI) | payer SELFPAY ==
[~2018-03-07] MED LIST changes: +NS 100 ML (IVPB) BAG IV ONE; -NS 250 ML (IVPB) BAG IV ONE
--- NOTE | 2018-03-07 18:00 | Diagnostic Imaging Report ---
PROCEDURE: CT pelvis with contrast. TECHNIQUE: Oral and intravenous contrast were administered with pelvic CT performed. 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 CORRELATION STUDY: 02/23/2018. FINDINGS: Multiphase imaging was performed. There is presence of a Arteaga catheter. On the delayed images, the urinary bladder is not particularly distended. There is again slight irregularity about the posteroinferior margin of the urinary bladder. Definitive contrast migration beyond this area into the pelvis and/or vagina, however, does not appear to be present. Surgical changes of apparent hysterectomy. There is rather significant distortion of the soft tissues in and around the vaginal cuff. Small amount of fluid is present. Definitive drainable abscess, however, does not appear to be present. There is presence of a right adnexal cystic mass measuring just under 5 cm in size likely reflecting an ovarian cyst. Trace amount of free pelvic fluid. The visualized portion of the colon does demonstrate mild severity fecal retention. No evidence for large fecal impaction. Portions of the appendix are visualized in the right lower quadrant. Surgical changes in the anterior abdominal wall are noted. IMPRESSION: 1. Again noted is irregular contour about the posterior bladder. Definitive contrast extravasation into the vagina and/or within the pelvis, however, is not demonstrated at this time. 2. Right ovarian cyst. Dictated by: Dictated on workstation # [id number]
== END ==
LOC: RAD 16:21
PROVIDERS: ATTEND Obstetrics & Gynecology
DX: N99.81 Other intraoperative complications of genitourinary system (principal); N82.0 Vesicovaginal fistula; K59.03 Drug induced constipation; N83.201 Unspecified ovarian cyst, right side
CPT/HCPCS: 72193

== ENCOUNTER → 2018-03-09 | Outpatient (CLI) | payer SELFPAY ==
[~2018-03-09] MED LIST changes: -CATHETER FLUSH 10 ML SYR IV PRN; -IOHEXOL 350 MG/ML 100 ML (OMNIPAQUE 350) VIAL IV ONE; -NS 100 ML (IVPB) BAG IV ONE
--- NOTE | 2018-03-09 17:26 | Diagnostic Imaging Report ---
EXAMINATION: CT cystogram. TECHNIQUE: Contiguous axial sections were taken through the pelvis prior to the administration of contrast into the bladder via the patient's catheter. FINDINGS: The previous CT pelvis exam performed on 03/07/2018 noted irregularity of the posterior aspect of the bladder wall but failed to show any clear evidence for extravasation of the contrast from the bladder. The pre contrast images of this exam again show the roughly 5 cm cyst in the right adnexa that was noted on the prior study. There is no solid pelvic mass noted but there may be a small amount of free fluid low in the pelvis. Following the administration of the contrast into the bladder, there was evidence of the contrast extravasating from the posterior aspect of the base of the bladder. This is best visualized on the sagittal series (image [id number]) this may represent a small fistulous tract, possibly communicating with the vagina.. There does not appear to be not appear to be any significant accumulation of the contrast within the pelvis. The post drainage films reveal that there is only a small amount of residual contrast still present in the soft tissues. IMPRESSION: 1. There is a small leak of the contrast from the posterior aspect of the base of the bladder. This may resent a small fistulous tract. There is no significant accumulation of the contrast within the pelvis. 2. These results were called to Dr. Sandrine Lomas. Dictated by: Dictated on workstation # [id number]
== END ==
LOC: RAD 15:14
PROVIDERS: ATTEND Obstetrics & Gynecology
DX: N99.81 Other intraoperative complications of genitourinary system (principal); N82.0 Vesicovaginal fistula
CPT/HCPCS: 72192